=== PATIENT | female | born 1995 | race Caucasian/White ===

== ENCOUNTER 2023-04-15 09:29 | Outpatient (AMB) | payer OTHER, SELFPAY ==
--- NOTE | 2023-04-15 09:31 | HO.NEPHOV_ITS ---
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 She has hereditary GN. She had a renal biopsy done in [facility] [place]. She has one child. Her in the last year was terminated but again 7 weeks now. She had been on diuretics and losartan which had been discontinued. She is currently on Labetalol now. She has been having about 3 grams of protein in urine in last few years( Has very strong family H/O renal disease (cousin)( Had been having confusion whether she has genetic FSGS or likely C3 GN). She has no SOB, PND, orthopnea hematuria or any new systemic complaints except morning sickness. Assessment & Plan Assessment & Plan (1) Nephrotic syndrome: Code(s): N04.9 - Nephrotic syndrome with unspecified morphologic changes (2) Hypertension: Code(s): I10 - Essential (primary) hypertension Qualifiers: Hypertension type: secondary to other renal disorders Qualified Code(s): I15.1 - Hypertension secondary to other renal disorders Plan Known to have hereditary GN Had a renal biopsy done in [facility] in 2016 and 2021 She had been on diuretics and losartan but off now Has been having about 3 grams of protein in urine in last few years (Has very strong family H/O renal disease (cousin) (Had been having confusion 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 Renal function had been stable; Off losartan given Follow up labs ordered; BP needs to be maintained at goal; Low sodium diet Weight loss; Answered all questions Time spent reviewing chart/ data from outside/ encounter/ documentation 48 mts Coding Level of Care Code Est Pt Level 5 (22969) Diagnoses Nephrotic syndrome N04.9 Hypertension secondary to other renal disorders I15.1 Hypertension type: secondary to other renal disorders COUNT INCLUDES [facility] Medical History (Updated 04/15/23 @ 09:40 by Stevenson Brooks MD) Hypertension Nephrotic syndrome Social History (Updated 04/15/23 @ 09:40 by Gretel Montes De Oca MA) Alcohol intake: never Patient Tobacco Use Status: Never used Tobacco Use of substances other than those prescribed or required for medical reasons: No
[2023-04-15 09:36] VITALS: BP 122/90; PULSE 73; BMI 36.9
== END 2023-04-15 09:59 | disposition home or self-care (01) ==
PROVIDERS: Visit Provider Internal Medicine Nephrology
DX: N04.9 Nephrotic syndrome with unspecified morphologic changes (principal); I15.1 Hypertension secondary to other renal disorders
CPT/HCPCS: 99215

== ENCOUNTER → 2023-04-15 09:29 | Outpatient (BNVA) | payer OTHER, SELFPAY | PROVIDERS: Visit Provider Internal Medicine Nephrology | DX: I15.1 Hypertension secondary to other renal disorders (principal); N04.9 Nephrotic syndrome with unspecified morphologic changes | CPT/HCPCS: 99212 ==

== ENCOUNTER 2023-05-16 09:22 | Outpatient (AMB) | payer OTHER, SELFPAY ==
[2023-05-16 09:28] VITALS: BP 120/82; PULSE 74; BMI 35.4
--- NOTE | 2023-05-16 09:28 | HO.NEPHOV_ITS ---
HPI HPI Comments History of Present Illness Details I had the pleasure of seeing Pushpa in follow up for her proteinuria. She has hereditary GN. She had a renal biopsy done [place] [facility] [place]. She has one child. Her in the last year was terminated but again 10 weeks now. She had been on diuretics and losartan which had been discontinued. She is currently on Labetalol now. She checks BP at home and is high. She had a USS which according to her has been OK. She has been having about 3 grams of protein in urine in last few years( Has very strong family H/O renal disease (cousin)( Had been having confusion whether she has genetic FSGS or likely C3 GN). She has no SOB, PND, orthopnea hematuria or any new systemic complaints except morning sickness. [facility] Medical History (Updated 04/15/23 @ 09:40 by Stevenson Brooks MD) Hypertension Nephrotic syndrome Social History Alcohol intake: never Patient Tobacco Use Status: Never used Tobacco Vital Signs 05/16/23 09:28 Height 5 ft 3 in Weight 200 lb 2 oz BMI 35.4 BP 120/82 Blood Pressure Location Lt brachial Position Sitting Pulse 74 Pulse Source Pulse Oximeter Physical Exam Vital Signs: Last Vital Signs Pulse 74 05/16/23 09:28 BP 120/82 05/16/23 09:28 BMI result Body Mass Index 35.4 Const General: comfortable and no acute distress Orientation/consciousness: patient oriented x3 HEENT Head: Yes normocephalic Mouth: Normal oral and palatal mucosa present Eyes EOM: EOMs intact bilaterally Neck Neck: Yes supple Resp Auscultation: clear to auscultation bilaterally Cardio Jugular venous distension: no JVD Rate: regular rate GI Palpation (GI): Soft to palpation Auscultation: normal bowel sounds General: Yes no CVA tenderness Back/Spine/Pelvis Back: no CVA tenderness Skin General skin exam: no rashes or lesions noted Neuro General: patient oriented x3 and moves all extremities Extrem General: Yes no pedal edema Assessment & Plan Assessment & Plan (1) Nephrotic syndrome: Code(s): N04.9 - Nephrotic syndrome with unspecified morphologic changes (2) Hypertension: Code(s): I10 - Essential (primary) hypertension Qualifiers: Hypertension type: secondary to other renal disorders Qualified Code(s): I15.1 - Hypertension secondary to other renal disorders Plan Known to have hereditary GN Had a renal biopsy done in [facility] 2017 and 2021 She had been on diuretics and losartan but off now Has been having about 3 grams of protein in urine in last few years (Has very strong family H/O renal disease (cousin) (Had been having confusion 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 Renal function had been stable; Off losartan/lasix given Follow up labs ordered; BP needs to be maintained at goal; Low sodium diet Answered all questions Orders: Orders Aspartate Amino Transferase Today I10 - Essential (primary) hypertension, N04.9 - Nephrotic syndrome with unspecified morphologic changes Alanine Aminotransferase Today I10 - Essential (primary) hypertension, N04.9 - Nephrotic syndrome with unspecified morphologic changes Blood Urea Nitrogen Today I10 - Essential (primary) hypertension, N04.9 - Nephrotic syndrome with unspecified morphologic changes Electrolytes Today I10 - Essential (primary) hypertension, N04.9 - Nephrotic syndrome with unspecified morphologic changes Creatinine Today I10 - Essential (primary) hypertension, N04.9 - Nephrotic syndrome with unspecified morphologic changes Protein Creatinine Ratio, Ur Today I10 - Essential (primary) hypertension, N04.9 - Nephrotic syndrome with unspecified morphologic changes Bilirubin Total Today I10 - Essential (primary) hypertension, N04.9 - Nephrotic syndrome with unspecified morphologic changes Complete Blood Count Auto Diff Today I10 - Essential (primary) hypertension, N04.9 - Nephrotic syndrome with unspecified morphologic changes Coding Level of Care Code Est Pt Level 3 (63046) Diagnoses Nephrotic syndrome N04.9 Hypertension secondary to other renal disorders I15.1 Hypertension type: secondary to other renal disorders Results Reviewed Nephrology Results: No Data to Display
== END 2023-05-16 09:59 | disposition home or self-care (01) ==
PROVIDERS: Visit Provider Internal Medicine Nephrology
DX: N04.9 Nephrotic syndrome with unspecified morphologic changes (principal); I15.1 Hypertension secondary to other renal disorders
CPT/HCPCS: 99213

== ENCOUNTER → 2023-05-16 09:22 | Outpatient (BNVA) | payer OTHER, SELFPAY | PROVIDERS: Visit Provider Internal Medicine Nephrology | DX: N04.9 Nephrotic syndrome with unspecified morphologic changes (principal); I15.1 Hypertension secondary to other renal disorders | CPT/HCPCS: 99212 ==

== ENCOUNTER 2023-07-02 11:10 | Outpatient (AMB) | payer OTHER, SELFPAY ==
[2023-07-02 11:43] VITALS: BP 122/78; PULSE 71; O2SAT 98; BMI 35.1
--- NOTE | 2023-07-02 11:43 | HO.NEPHOV ---
HPI HPI Comments History of Present Illness Details I had the pleasure of seeing Pushpa in follow up for h er proteinuria. Lorena daly has hereditary G N. She had a renal biopsy done in [facility] in 2016 and 2021 . She has one chil d. Her i n the last year wa s terminated but p regnant again 17 w eeks now. She had been on diuretics and losartan which had been disconti nued after detecti on of . S he is currently on Labetalol now. Lorena daly checks BP at nya e and is at goal. She had a USS whic h according to her has been OK. She has been having ab out 3 grams of pro tein in urine in l ast few years( Has very strong famil y H/O renal diseas e (cousin)( Had be en having confusio n whether she has genetic FSGS or li cheko C3 GN). She h as no SOB, PND, or thopnea hematuria or any new systemi c complaints excep t morning sickness . [facility] Medical History (Updated 04/15/23 @ 09:40 by Stevenson Brooks MD) Hypertension Nephrotic syndrome Social History Alcohol intake: never Patient Tobacco Use Status: Never used Tobacco Vital Signs 07/02/23 11:43 Height 5 ft 3 in Weight 198 lb BMI 35.1 BP 122/78 Blood Pressure Location Lt brachial Position Sitting Pulse 71 Pulse Source Pulse Oximeter Pulse Oximetry (%) 98 Oxygen Delivery Method Room Air Physical Exam Vital Signs: Last Vital Signs Pulse 71 07/02/23 11:43 BP 122/78 07/02/23 11:43 Pulse Ox 98 07/02/23 11:43 Oxygen Delivery Method Room Air 07/02/23 11:43 BMI result Body Mass Index 35.1 Const General: comfortable and no acute distress Orientation/consciousness: patient oriented x3 HEENT Head: Yes normocephalic Mouth: Normal oral and palatal mucosa present Eyes EOM: EOMs intact bilaterally Neck Neck: Yes supple Resp Auscultation: clear to auscultation bilaterally Cardio Jugular venous distension: no JVD Rate: regular rate GI Palpation (GI): Soft to palpation Auscultation: normal bowel sounds General: Yes no CVA tenderness Back/Spine/Pelvis Back: no CVA tenderness Skin General skin exam: no rashes or lesions noted Neuro General: patient oriented x3 and moves all extremities Extrem General: Yes no pedal edema Assessment & Plan Assessment & Plan (1) Hypertension: Code(s): I10 - Essential (primary) hypertension Qualifiers: Hypertension type: secondary to other renal disorders Qualified Code(s): I15.1 - Hypertension secondary to other renal disorders (2) Nephrotic syndrome: Code(s): N04.9 - Nephrotic syndrome with unspecified morphologic changes Plan nown to have hereditary GN Had a renal biopsy done in [facility] in 2016 and 2021 She had been on diuretics and losartan but off since detection of Has been having about 3 grams of protein in urine in last few years (Has very strong family H/O renal disease (cousin) (Had been having confusion 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 Renal function had been stable; Off losartan/lasix given BP needs to be maintained at goal; Low sodium diet No changes made today. Refilled labetalol. Answered all questions Medications: Changed From labetalol 200 mg PO BID To labetalol 200 mg PO BID 90 days 180 tabs 3RF Coding Level of Care Code Est Pt Level 3 (09220) Diagnoses Hypertension secondary to other renal disorders I15.1 Hypertension type: secondary to other renal disorders Nephrotic syndrome N04.9 Results Reviewed Nephrology Results: No Data to Display
== END 2023-07-02 12:05 | disposition home or self-care (01) ==
PROVIDERS: Visit Provider Internal Medicine Nephrology
DX: I15.1 Hypertension secondary to other renal disorders (principal); N04.9 Nephrotic syndrome with unspecified morphologic changes
CPT/HCPCS: 99213

== ENCOUNTER → 2023-07-02 11:10 | Outpatient (BNVA) | payer OTHER, SELFPAY | PROVIDERS: Visit Provider Internal Medicine Nephrology | DX: I15.1 Hypertension secondary to other renal disorders (principal); N04.9 Nephrotic syndrome with unspecified morphologic changes; Z79.899 Other long term (current) drug therapy | CPT/HCPCS: 99212 ==

== ENCOUNTER 2023-08-27 10:46 | Outpatient (AMB) | payer OTHER, SELFPAY ==
--- NOTE | 2023-08-27 10:48 | HO.NEPHOV ---
HPI HPI Comments History of Present Illness Details I had the pleasure of seeing Pushpa in follow up for her proteinuria. She has hereditary GN. She had a [place] [facility]. She has one child. Her in the last year was terminated but again 26 weeks now. She had been on diuretics and losartan which had been discontinued. She is currently on Labetalol now. She had a USS which according to her has been OK. She has been having about 3 grams of protein in urine in last few years( Has very strong family H/O renal disease (cousin)( Had been having confusion whether she has genetic FSGS or likely C3 GN). She has no SOB, PND, orthopnea hematuria or any new systemic complaints . [facility] Medical History (Updated 08/27/23 @ 11:07 by Stevenson Brooks MD) Hypertension Nephrotic syndrome Social History Alcohol intake: never Patient Tobacco Use Status: Never used Tobacco Vital Signs 08/27/23 10:49 Height 5 ft 3 in Weight 206 lb BMI 36.5 BP 112/68 Blood Pressure Location Lt brachial Position Sitting Pulse 84 Pulse Source Pulse Oximeter Pulse Oximetry (%) 93 Oxygen Delivery Method Room Air Physical Exam Vital Signs: Last Vital Signs Pulse 84 08/27/23 10:49 BP 112/68 08/27/23 10:49 Pulse Ox 93 08/27/23 10:49 Oxygen Delivery Method Room Air 08/27/23 10:49 BMI result Body Mass Index 36.5 Const General: comfortable and no acute distress Orientation/consciousness: patient oriented x3 HEENT Head: Yes normocephalic Mouth: Normal oral and palatal mucosa present Eyes EOM: EOMs intact bilaterally Neck Neck: Yes supple Resp Auscultation: clear to auscultation bilaterally Cardio Jugular venous distension: no JVD Rate: regular rate GI Auscultation: normal bowel sounds General: Yes no CVA tenderness Back/Spine/Pelvis Back: no CVA tenderness Skin General skin exam: no rashes or lesions noted Neuro General: patient oriented x3 and moves all extremities Extrem General: Yes no pedal edema Assessment & Plan Assessment & Plan (1) Hypertension: Code(s): I10 - Essential (primary) hypertension Qualifiers: Hypertension type: secondary to other renal disorders Qualified Code(s): I15.1 - Hypertension secondary to other renal disorders (2) Proteinuria: Code(s): R80.9 - Proteinuria, unspecified Qualifiers: Proteinuria type: other Qualified Code(s): R80.8 - Other proteinuria Plan Known to have hereditary GN Had a renal [place] [facility] [place] 2021 She had been on diuretics and losartan pre but off now Has been having about 3 grams of protein in urine in last few years (Has very strong family H/O renal disease (cousin) (Had been having confusion 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 Renal function had been stable; Off losartan/lasix given Follow up labs ordered; BP needs to be maintained at goal; Low sodium diet Orders: Orders Blood Urea Nitrogen Today I10 - Essential (primary) hypertension, R80.9 - Proteinuria, unspecified Creatinine Today I10 - Essential (primary) hypertension, R80.9 - Proteinuria, unspecified Electrolytes Today I10 - Essential (primary) hypertension, R80.9 - Proteinuria, unspecified Protein Creatinine Ratio, Ur Today I10 - Essential (primary) hypertension, R80.9 - Proteinuria, unspecified Coding Level of Care Code Est Pt Level 3 (86203) Diagnoses Hypertension secondary to other renal disorders I15.1 Hypertension type: secondary to other renal disorders Other proteinuria R80.8 Proteinuria type: other Results Reviewed Nephrology Results: No Data to Display
[2023-08-27 10:49] VITALS: BP 112/68; PULSE 84; O2SAT 93; BMI 36.5
== END 2023-08-27 11:12 | disposition home or self-care (01) ==
PROVIDERS: Visit Provider Internal Medicine Nephrology
DX: I15.1 Hypertension secondary to other renal disorders (principal); R80.8 Other proteinuria
CPT/HCPCS: 99213

== ENCOUNTER → 2023-08-27 10:46 | Outpatient (BNVA) | payer OTHER, SELFPAY | PROVIDERS: Visit Provider Internal Medicine Nephrology | DX: I15.1 Hypertension secondary to other renal disorders (principal); R80.8 Other proteinuria | CPT/HCPCS: 99212 ==

== ENCOUNTER 2023-09-26 09:55 | Outpatient (AMB) | payer OTHER, SELFPAY ==
[2023-09-26 10:02] VITALS: BP 110/70; PULSE 74; O2SAT 99; BMI 37.4
--- NOTE | 2023-09-26 10:02 | HO.NEPHOV_ITS ---
HPI HPI Comments History of Present Illness Details I had the pleasure of seeing Pushpa in follow up for her proteinuria. She has hereditary GN. She had a renal biopsy done in [facility] [place] in 2017 and 2021. She has one child. Her in the last year was terminated but again 30 weeks now. She had been on diuretics and losartan which had been discontinued. She is currently on Labetalol now, dose of which has been increased to 400 mg bid. She had a USS which according to her has been OK, repeat one coming up on .. She has been having about 3 grams of protein in urine in last few years( Has very strong family H/O renal disease (cousin)( Had been having confusion whether she has genetic FSGS or likely C3 GN). She has no SOB, PND, orthopnea hematuria but has been having some edema. She is trying to be on low sodium diet. She has been started on PO iron tid . [facility] Medical History (Updated 08/27/23 @ 11:07 by Stevenson Brooks MD) Hypertension Nephrotic syndrome Social History Alcohol intake: never Patient Tobacco Use Status: Never used Tobacco Vital Signs 09/26/23 10:02 Height 5 ft 3 in Weight 211 lb 2 oz BMI 37.4 BP 110/70 Blood Pressure Location Lt brachial Position Sitting Pulse 74 Pulse Source Pulse Oximeter Pulse Oximetry (%) 99 Oxygen Delivery Method Room Air Physical Exam Vital Signs: Last Vital Signs Pulse 74 09/26/23 10:02 BP 110/70 09/26/23 10:02 Pulse Ox 99 09/26/23 10:02 Oxygen Delivery Method Room Air 09/26/23 10:02 BMI result Body Mass Index 37.4 Const General: comfortable and no acute distress Orientation/consciousness: patient oriented x3 HEENT Head: Yes normocephalic Mouth: Normal oral and palatal mucosa present Eyes EOM: EOMs intact bilaterally Neck Neck: Yes supple Resp Auscultation: clear to auscultation bilaterally Cardio Jugular venous distension: no JVD Rate: regular rate GI Auscultation: normal bowel sounds General: Yes no CVA tenderness Back/Spine/Pelvis Back: no CVA tenderness Skin General skin exam: no rashes or lesions noted Neuro General: patient oriented x3 and moves all extremities Assessment & Plan Assessment & Plan (1) Proteinuria: Code(s): R80.9 - Proteinuria, unspecified Qualifiers: Proteinuria type: other Qualified Code(s): R80.8 - Other proteinuria (2) Nephrotic syndrome: Code(s): N04.9 - Nephrotic syndrome with unspecified morphologic changes (3) Hypertension: Code(s): I10 - Essential (primary) hypertension Qualifiers: Hypertension type: secondary to other renal disorders Qualified Code(s): I15.1 - Hypertension secondary to other renal disorders Plan Known to have hereditary GN Had a renal biopsy done in [facility] [place] in 2016 and 2021 She had been on diuretics and losartan pre but off now Has been having about 3 grams of protein in urine in last few years (Has very strong family H/O renal disease (cousin) (Had been having confusion 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 Renal function had been stable; Off losartan/lasix given BP needs to be maintained at goal; Low sodium diet Coding Level of Care Code Est Pt Level 4 (92071) Diagnoses Other proteinuria R80.8 Proteinuria type: other Nephrotic syndrome N04.9 Hypertension secondary to other renal disorders I15.1 Hypertension type: secondary to other renal disorders Results Reviewed Nephrology Results: No Data to Display
== END 2023-09-26 10:29 | disposition home or self-care (01) ==
PROVIDERS: Visit Provider Internal Medicine Nephrology
DX: R80.8 Other proteinuria (principal); N04.9 Nephrotic syndrome with unspecified morphologic changes; I15.1 Hypertension secondary to other renal disorders
CPT/HCPCS: 99214

== ENCOUNTER → 2023-09-26 09:55 | Outpatient (BNVA) | payer OTHER, SELFPAY | PROVIDERS: Visit Provider Internal Medicine Nephrology | DX: I15.1 Hypertension secondary to other renal disorders (principal); R80.8 Other proteinuria; N04.9 Nephrotic syndrome with unspecified morphologic changes | CPT/HCPCS: 99212 ==

== ENCOUNTER 2023-10-10 09:58 | Outpatient (AMB) | payer OTHER, SELFPAY ==
--- NOTE | 2023-10-10 10:14 | HO.NEPHOV_ITS ---
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 She has hereditary GN. She had a renal biopsy done in [facility] in 2017 and 2021. She has one child. Her in the last year was terminated but again 32 weeks now. She had been on diuretics and losartan which had been discontinued. She is currently on Labetalol now, dose of which has been increased to 400 mg bid. She has been having about 3 grams of protein in urine in last few years( Has very strong family H/O renal disease (cousin)( Had been having confusion whether she has genetic FSGS or likely C3 GN). She has no SOB, PND, orthopnea hematuria but has been having some edema. She is trying to be on low sodium diet. She has been on PO iron tid and B12 once a month. [facility] Medical History (Updated 08/27/23 @ 11:07 by Stevenson Brooks MD) Hypertension Nephrotic syndrome Social History Alcohol intake: never Patient Tobacco Use Status: Never used Tobacco Physical Exam Vital Signs: Last Vital Signs Pulse 83 10/10/23 10:15 BP 118/74 10/10/23 10:15 Pulse Ox 99 10/10/23 10:15 Oxygen Delivery Method Room Air 10/10/23 10:15 BMI result Body Mass Index 36.9 Const General: comfortable and no acute distress Orientation/consciousness: patient oriented x3 HEENT Head: Yes normocephalic Mouth: Normal oral and palatal mucosa present Eyes EOM: EOMs intact bilaterally Neck Neck: Yes supple Resp Auscultation: clear to auscultation bilaterally Cardio Jugular venous distension: no JVD Rate: regular rate GI Auscultation: normal bowel sounds General: Yes no CVA tenderness Back/Spine/Pelvis Back: no CVA tenderness Skin General skin exam: no rashes or lesions noted Neuro General: patient oriented x3 and moves all extremities Extrem General: Yes no pedal edema Results Reviewed Nephrology Results: No Data to Display Assessment & Plan Assessment & Plan (1) Nephrotic syndrome: Code(s): N04.9 - Nephrotic syndrome with unspecified morphologic changes Category: Medical (2) Hypertension: Code(s): I10 - Essential (primary) hypertension Category: Medical Qualifiers: Hypertension type: secondary to other renal disorders Qualified Code(s): I15.1 - Hypertension secondary to other renal disorders Plan Known to have hereditary GN Had a renal biopsy done in [facility] in 2017 and 2021 She had been on diuretics and losartan pre but off now Has been having about 3 grams of protein in urine in last few years (Has very strong family H/O renal disease (cousin) (Had been having confusion 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 Renal function had been stable; Off losartan/lasix given BP needs to be maintained at goal; Low sodium diet; F/U 2 weeks Coding Level of Care Code Est Pt Level 4 (44250) Diagnoses Nephrotic syndrome N04.9 Hypertension secondary to other renal disorders I15.1 Hypertension type: secondary to other renal disorders
[2023-10-10 10:15] VITALS: BP 118/74; PULSE 83; O2SAT 99; BMI 36.9
== END 2023-10-10 10:40 | disposition home or self-care (01) ==
PROVIDERS: Visit Provider Internal Medicine Nephrology
DX: N04.9 Nephrotic syndrome with unspecified morphologic changes (principal); I15.1 Hypertension secondary to other renal disorders
CPT/HCPCS: 99214

== ENCOUNTER → 2023-10-10 09:58 | Outpatient (BNVA) | payer OTHER, SELFPAY | PROVIDERS: Visit Provider Internal Medicine Nephrology | DX: N04.9 Nephrotic syndrome with unspecified morphologic changes (principal); I15.1 Hypertension secondary to other renal disorders | CPT/HCPCS: 99212 ==

== ENCOUNTER 2023-12-31 13:36 | Outpatient (AMB) | payer SELFPAY ==
--- NOTE | 2023-12-31 13:41 | HO.NEPHOV ---
Vital Signs 12/31/23 13:49 Height 5 ft 3 in Weight 182 lb 6 oz BMI 32.3 BP 120/80 Blood Pressure Location Lt brachial Position Sitting Intake Visit Reasons: R/S 10/24/2023/ Conf Insurance Follow Up Specialist Required: No Accompanied by: Child Allergies ferumoxytol Allergy (Verified 12/31/23 13:51) Anaphylaxis iron Allergy (Verified 12/31/23 13:51) Unknown HPI Comments Details: I had the pleasure of seeing Pushpa in follow up for her proteinuria. She has hereditary GN. She [place] renal [place] [facility] She has two children. She had been on diuretics and losartan which had been discontinued during recent but was restarted on enalapril 5 mg after child . She is post 2 months and is breast feeding. She has been having about 3 grams of protein in urine in last few years( Has very strong family H/O renal disease (cousin)( Had been having confusion whether she has genetic FSGS or likely C3 GN). She has no SOB, PND, orthopnea hematuria or edema. She is trying to be on low sodium diet. [facility] Medical History (Updated 08/27/23 @ 11:07 by Stevenson Brooks MD) Hypertension Nephrotic syndrome Social History Alcohol intake: never Patient Tobacco Use Status: Never used Tobacco Physical Exam Vital Signs: Last Vital Signs BP 130/96 H 12/31/23 13:49 BMI result Body Mass Index 32.3 Const General: comfortable and no acute distress Orientation/consciousness: patient oriented x3 HEENT Head: Yes normocephalic Mouth: Normal oral and palatal mucosa present Eyes EOM: EOMs intact bilaterally Neck Neck: Yes supple Resp Auscultation: clear to auscultation bilaterally Cardio Jugular venous distension: no JVD Rate: regular rate GI Palpation (GI): Soft to palpation Auscultation: normal bowel sounds General: Yes no CVA tenderness Back/Spine/Pelvis Back: no CVA tenderness Skin General skin exam: no rashes or lesions noted Neuro General: patient oriented x3 and moves all extremities Results Reviewed Nephrology Results: No Data to Display Assessment & Plan Assessment & Plan (1) Proteinuria: Code(s): R80.9 - Proteinuria, unspecified Category: Medical Qualifiers: Proteinuria type: other Qualified Code(s): R80.8 - Other proteinuria (2) Nephrotic syndrome: Code(s): N04.9 - Nephrotic syndrome with unspecified morphologic changes Category: Medical (3) Hypertension: Code(s): I10 - Essential (primary) hypertension Category: Medical Qualifiers: Hypertension type: secondary to other renal disorders Qualified Code(s): I15.1 - Hypertension secondary to other renal disorders Plan Known to have hereditary GN Had a renal [place] done [place] [facility] [place] 2021 She had been on diuretics and losartan pre but off during Has been having about 3 grams of protein in urine in last few years (Has very strong family H/O renal disease (cousin) (Had been having confusion 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 Currently on enalapril 5 mg; Labs ordered for today BP needs to be maintained at goal; Low sodium diet; F/U in 3 M Orders: Orders Protein Creatinine Ratio, Ur Today I15.1 - Hypertension secondary to other renal disorders, N04.9 - Nephrotic syndrome with unspecified morphologic changes, R80.8 - Other proteinuria Creatinine 3 Months I15.1 - Hypertension secondary to other renal disorders, N04.9 - Nephrotic syndrome with unspecified morphologic changes, R80.8 - Other proteinuria Electrolytes 3 Months I15.1 - Hypertension secondary to other renal disorders, N04.9 - Nephrotic syndrome with unspecified morphologic changes, R80.8 - Other proteinuria Protein Creatinine Ratio, Ur 3 Months I15.1 - Hypertension secondary to other renal disorders, N04.9 - Nephrotic syndrome with unspecified morphologic changes, R80.8 - Other proteinuria Creatinine Today I15.1 - Hypertension secondary to other renal disorders, N04.9 - Nephrotic syndrome with unspecified morphologic changes, R80.8 - Other proteinuria Blood Urea Nitrogen Today I15.1 - Hypertension secondary to other renal disorders, N04.9 - Nephrotic syndrome with unspecified morphologic changes, R80.8 - Other proteinuria Electrolytes Today I15.1 - Hypertension secondary to other renal disorders, N04.9 - Nephrotic syndrome with unspecified morphologic changes, R80.8 - Other proteinuria Blood Urea Nitrogen 3 Months I15.1 - Hypertension secondary to other renal disorders, N04.9 - Nephrotic syndrome with unspecified morphologic changes, R80.8 - Other proteinuria Coding Level of Care Code Est Pt Level 4 (94391) Diagnoses Other proteinuria R80.8 Proteinuria type: other Nephrotic syndrome N04.9 Hypertension secondary to other renal disorders I15.1 Hypertension type: secondary to other renal disorders
[2023-12-31 13:49] VITALS: BP 120/80; BMI 32.3
== END 2023-12-31 16:14 | disposition home or self-care (01) ==
PROVIDERS: Visit Provider Internal Medicine Nephrology
DX: R80.8 Other proteinuria (principal); N04.9 Nephrotic syndrome with unspecified morphologic changes; I15.1 Hypertension secondary to other renal disorders
CPT/HCPCS: 99214

== ENCOUNTER → 2023-12-31 13:36 | Outpatient (BNVA) | payer OTHER, SELFPAY | PROVIDERS: Visit Provider Internal Medicine Nephrology ==

== ENCOUNTER 2023-12-31 14:14 | Outpatient (REF) | payer OTHER, SELFPAY ==
[2023-12-31 17:47] LABS: Anion Gap 18 (12-20); Blood Urea Nitrogen 13 mg/dL (9-16); Carbon Dioxide 17 mmol/L (22-29); Chloride 110 mmol/L (96-108); Estimated Glomerular Filt Rate > 60; Potassium 3.7 mmol/L (3.3-5.1); Sodium 141 mmol/L (135-145)
[2023-12-31 18:32] LABS: Creatinine Urine 205.16 mg/dL
[2023-12-31 19:20] LABS: Protein/Creatinine Ratio, Ur 2.31 (<0.2); Total Protein Urine Random 474 mg/dL (<12)
== END 2023-12-31 14:15 | disposition home or self-care (01) ==
LOC: HO.HKASLDS 14:14
PROVIDERS: Visit Provider Internal Medicine Nephrology
DX: R80.8 Other proteinuria (principal); N04.9 Nephrotic syndrome with unspecified morphologic changes; I15.1 Hypertension secondary to other renal disorders; Z79.899 Other long term (current) drug therapy
CPT/HCPCS: 36415; 80051; 82565; 82570; 84156; 84520; 99212

== ENCOUNTER 2024-03-24 11:25 | Outpatient (AMB) | payer OTHER, SELFPAY ==
--- NOTE | 2024-03-24 11:34 | MHC.OFFVIS ---
Vital Signs 03/24/24 11:36 Height 5 ft 3 in Weight 188 lb 2 oz BMI 33.3 BP 124/90 H Blood Pressure Location Lt brachial Position Sitting Pulse 80 Pulse Source Pulse Oximeter Pulse Oximetry (%) 99 Oxygen Delivery Method Room Air Intake Visit Reasons: Hypertension Special Education Administrator Required: No Accompanied by: Mother Allergies ferumoxytol Allergy (Verified 03/24/24 11:39) Anaphylaxis iron Allergy (Verified 03/24/24 11:39) Unknown HPI Comments Details: I had the pleasure of seeing Pushpa in follow up for her proteinuria. She has hereditary GN. She [place] [facility]. She has two children. She had been on diuretics and losartan which had been discontinued during recent but was restarted on enalapril 5 mg after child . She is post 5 months and is breast feeding. She has been having about 3 grams of protein in urine in last few years( Has very strong family H/O renal disease (cousin)( Had been having confusion whether she has genetic FSGS or likely C3 GN). She has no SOB, PND, orthopnea hematuria or edema. She is trying to be on low sodium diet. [facility] Medical History (Updated 08/27/23 @ 11:07 by Stevenson Brooks MD) Hypertension Nephrotic syndrome Social History Alcohol intake: never Patient Tobacco Use Status: Never used Tobacco Review of Systems Const All systems reviewed & are unremarkable except as noted in HPI and below Physical Exam Vital Signs: Last Vital Signs Pulse 80 03/24/24 11:36 BP 124/90 H 03/24/24 11:36 Pulse Ox 99 03/24/24 11:36 Oxygen Delivery Method Room Air 03/24/24 11:36 BMI result Body Mass Index 33.3 Const General: comfortable and no acute distress Orientation/consciousness: patient oriented x3 HEENT Head: Yes normocephalic Mouth: Normal oral and palatal mucosa present Eyes EOM: EOMs intact bilaterally Neck Neck: Yes supple Resp Auscultation: clear to auscultation bilaterally Cardio Jugular venous distension: no JVD Rate: regular rate GI Palpation (GI): Soft to palpation Auscultation: normal bowel sounds General: Yes no CVA tenderness Back/Spine/Pelvis Back: no CVA tenderness Skin General skin exam: no rashes or lesions noted Neuro General: patient oriented x3 and moves all extremities Extrem General: Yes no pedal edema Assessment & Plan Assessment & Plan (1) Hypertension: Code(s): I10 - Essential (primary) hypertension Category: Medical Qualifiers: Hypertension type: secondary to other renal disorders Qualified Code(s): I15.1 - Hypertension secondary to other renal disorders (2) Proteinuria: Code(s): R80.9 - Proteinuria, unspecified Category: Medical Qualifiers: Proteinuria type: other Qualified Code(s): R80.8 - Other proteinuria Plan Known to have hereditary GN Had a renal [place] [facility] She had been on diuretics and losartan pre but off during Has been having about 3 grams of protein in urine in last few years (Has very strong family H/O renal disease (cousin) (Had been having confusion 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 Currently on enalapril 5 mg; Increased enalapril to 7.5 mg daily BP needs to be maintained at goal; Low sodium diet; Labs & F/U in 3 M Orders: Orders Creatinine 3 Months I15.1 - Hypertension secondary to other renal disorders, R80.8 - Other proteinuria Protein Creatinine Ratio, Ur 3 Months I15.1 - Hypertension secondary to other renal disorders, R80.8 - Other proteinuria Blood Urea Nitrogen 3 Months I15.1 - Hypertension secondary to other renal disorders, R80.8 - Other proteinuria Electrolytes 3 Months I15.1 - Hypertension secondary to other renal disorders, R80.8 - Other proteinuria Medications: Changed From enalapril maleate 7.5 mg PO DAILY To enalapril maleate 7.5 mg (1.5 x 5 mg) PO DAILY 90 days 135 tabs 1RF Coding Level of Care Code Est Pt Level 4 (19201) Diagnoses Hypertension secondary to other renal disorders I15.1 Hypertension type: secondary to other renal disorders Other proteinuria R80.8 Proteinuria type: other
[2024-03-24 11:36] VITALS: BP 124/90; PULSE 80; O2SAT 99; BMI 33.3
== END 2024-03-24 12:21 | disposition home or self-care (01) ==
PROVIDERS: Visit Provider Internal Medicine Nephrology
DX: I15.1 Hypertension secondary to other renal disorders (principal); R80.8 Other proteinuria
CPT/HCPCS: 99214

== ENCOUNTER → 2024-03-24 11:25 | Outpatient (BNVA) | payer OTHER, SELFPAY | PROVIDERS: Visit Provider Internal Medicine Nephrology | DX: I15.1 Hypertension secondary to other renal disorders (principal); N04.9 Nephrotic syndrome with unspecified morphologic changes; R80.8 Other proteinuria | CPT/HCPCS: 99212 ==

== ENCOUNTER 2024-06-17 10:03 | Outpatient (REF) | payer OTHER, SELFPAY ==
--- OUTSIDE RECORDS SUMMARY | 2024-06-17 10:19 | XMS_ITS ---
Author Organization [facility] [place], Address [address] [place] [address] Care Team Providers [facility] Pricing Consultant Name Role Phone Jacinda Flores [phone] ALLERGIES, ADVERSE REACTIONS, ALERTS Substance Code Code System Type Reaction Severity Status Start Date End Date iron 55063 RxNorm Drug allergy () 0 iron 16679 RxNorm Drug allergy () 1 MEDICATIONS Medication Code Code System Start Date Stop Date Route Dosage Directions Fill Instructions furosemide RxNorm 08/11/2022 losartan RxNorm 08/11/2022 cyclobenzaprine 664575 RxNorm 08/11/2022 3 oral 1 PROBLEMS Problem Name Code Code System Start Date End Date Stat us Hypertension 53036484 [facility] 08/11/2022 Active Disorder of kidney and urete r, unspecified 02512163 [facility] 08/11/2022 Active Torticollis 13769239 [facility] 08/11/2022 Inactive Acute tonsillitis, unspecified 54524912 [facility] 01/16/2023 Active ENCOUNTERS Encounter Diagnosis Code Code System Date Stat Acute tonsillitis, unspecified 59847412 [facility] 023 Active IMMUNIZATIONS * None VITAL SIGNS Code Code System Vitals Name Date Value and Un its 8462-4 [facility] Blood Pressure-Diastolic 01/16/2023 90 mmHg 8480-6 [facility] Blood Pressure-Systolic 01/16/2023 1 31 mmHg 8867-4 [facility] Heart Rate 01/16/2023 80 /min 9279-1 [facility] Respiratory Rate 01/16/2023 16 /min 8310-5 [facility] Body Temperature 01/16/2023 99.2 F 03259-7 [facility] Oxygen Saturation 01/16/2023 97 % SOCIAL HISTORY * None PROCEDURES * None RESULTS Test Code Code System Description Result Value Date Ref erence Range Loinc Strep A Not Detected 01/16/2023 Not Det ected 80079-1 [facility] MonoSpot heterop hile antibodies Negative 01/16/2023 MEDICAL EQUIPMENT * Patient has no history of implantable devices ASSESSMENT Assessment You likely have viral infect ion causing the tonsillitis.Your rapid strep was negative.Your mono test is negative.You may take Tylenol and/or Motrin as needed.Salt water gargles may help reduce pain and draw out the infection.Over the counter lozenges can also be helpful.Warm tea with honey can be helpfulYou may use an over the counter chloraseptic spray to help with the sore throat. DO NOT consume any sharp food or food at the extremes of temperature after using this spray as it will numb your throat.Drink plenty of fluids.If you develop any worsening symptoms, trouble swallowing, fever, pain opening the jaw, neck stiffness, or any other new, concerning symptoms please return. TREATMENT PLAN Type Description Date APPOINTMENT If not feeling ambrose r in 3 day(s), please see your primary care physician. If you do not have a primary care physician, please return to this clinic. 01/16/2023 Labs Tests Test Name Code Code System Date Strep A, DNA, Amplified Probe PCR 62913 CPT 01/16/2023 Strep A, DNA, Amplified Probe PCR 95852 CPT 01/16/2023 [place] [address] [facility] 2022 GOALS * None HEALTH CONCERNS * No Health Concerns FUNCTIONAL AND COGNITIVE STATUS * None CONSULTATION NOTES * None DISCHARGE SUMMARY NOTES * None HISTORY AND PHYSICAL NOTES * Reason for visit - Illness IMAGING NOTES * None LABORATORY REPORT NARRATIVE NOTES * None PATHOLOGY REPORT NARRATIVE NOTES * None PROGRESS NOTES * None
[2024-06-17 18:04] LABS: Anion Gap 10 (12-20); Blood Urea Nitrogen 14 mg/dL (9-16); Carbon Dioxide 22 mmol/L (22-29); Chloride 111 mmol/L (96-108); Estimated Glomerular Filt Rate > 60; Potassium 4.3 mmol/L (3.3-5.1); Sodium 139 mmol/L (135-145)
[2024-06-17 19:33] LABS: Protein/Creatinine Ratio, Ur 1.57 (<0.2); Total Protein Urine Random 433 mg/dL (<12)
== END 2024-06-17 10:04 | disposition home or self-care (01) ==
LOC: HO.HKASLDS 10:03
PROVIDERS: Visit Provider Internal Medicine Nephrology
DX: I15.1 Hypertension secondary to other renal disorders (principal); R80.8 Other proteinuria
CPT/HCPCS: 36415; 80051; 82565; 82570; 84156; 84520

== ENCOUNTER 2024-06-18 10:41 | Outpatient (AMB) | payer OTHER, SELFPAY ==
--- OUTSIDE RECORDS SUMMARY | 2024-06-18 11:21 | XMS_ITS ---
Author Organization [facility], Address [address] [place] [address] Care Team Providers Care Radio Announcer Name Role Phone Jacinda Flores [phone] ALLERGIES, ADVERSE REACTIONS, ALERTS Substance Code Code System Type Reaction Severity Status Start Date End Date iron 41218 RxNorm Drug allergy () 0 iron 88728 RxNorm Drug allergy () 1 MEDICATIONS Medication Code Code System Start Date Stop Date Route Dosage Directions Fill Instructions furosemide RxNorm 08/11/2022 losartan RxNorm 08/11/2022 cyclobenzaprine 196579 RxNorm 08/11/2022 3 oral 1 PROBLEMS Problem Name Code Code System Start Date End Date Stat us Hypertension 60973600 [facility] 08/11/2022 Active Disorder of kidney and urete r, unspecified 78121440 [facility] 08/11/2022 Active Torticollis 63520249 [facility] 08/11/2022 Inactive Acute tonsillitis, unspecified 28103853 [facility] 01/16/2023 Active ENCOUNTERS Encounter Diagnosis Code Code System Date Stat Acute tonsillitis, unspecified 37647801 [facility] 023 Active IMMUNIZATIONS * None VITAL SIGNS Code Code System Vitals Name Date Value and Un its 8462-4 [facility] Blood Pressure-Diastolic 01/16/2023 90 mmHg 8480-6 [facility] Blood Pressure-Systolic 01/16/2023 1 31 mmHg 8867-4 [facility] Heart Rate 01/16/2023 80 /min 9279-1 Loinc Respiratory Rate 01/16/2023 16 /min 8310-5 Loinc Body Temperature 01/16/2023 99.2 F 28600-9 Loinc Oxygen Saturation 01/16/2023 97 % SOCIAL HISTORY * None PROCEDURES * None RESULTS Test Code Code System Description Result Value Date Ref erence Range Loinc Strep A Not Detected 01/16/2023 Not Det ected 80028-9 Loinc MonoSpot heterop hile antibodies Negative 01/16/2023 [...] Date Strep A, DNA, Amplified Probe PCR 16272 CPT 01/16/2023 Strep A, DNA, Amplified Probe PCR 25288 CPT 01/16/2023 [place] [address] [facility] 2022 GOALS * None HEALTH CONCERNS * No Health Concerns FUNCTIONAL AND COGNITIVE STATUS * None CONSULTATION NOTES * None DISCHARGE SUMMARY NOTES * None HISTORY AND PHYSICAL NOTES * Reason for visit - Illness IMAGING NOTES * None LABORATORY REPORT NARRATIVE NOTES * None PATHOLOGY REPORT NARRATIVE NOTES * None PROGRESS NOTES * None
--- OUTSIDE RECORDS SUMMARY | 2024-06-18 11:21 | XMS_ITS ---
Author Organization [facility], Address [address] [place] [address] Care Team Providers Care Alley Tender Name Role Phone Jacinda Flores [phone] ALLERGIES, ADVERSE REACTIONS, ALERTS Substance Code Code System Type Reaction Severity Status Start Date End Date iron 63899 RxNorm Drug allergy () 0 iron 92678 RxNorm Drug allergy () 1 MEDICATIONS Medication Code Code System Start Date Stop Date Route Dosage Directions Fill Instructions furosemide RxNorm 08/11/2022 losartan RxNorm 08/11/2022 cyclobenzaprine 721301 RxNorm 08/11/2022 3 oral 1 PROBLEMS Problem Name Code Code System Start Date End Date Stat us Hypertension 75545657 [facility] 08/11/2022 Active Disorder of kidney and urete r, unspecified 78034225 [facility] 08/11/2022 Active Torticollis 01001197 [facility] 08/11/2022 Inactive Acute tonsillitis, unspecified 58964978 [facility] 01/16/2023 Active ENCOUNTERS Encounter Diagnosis Code Code System Date Stat Acute tonsillitis, unspecified 40266296 [facility] 023 Active IMMUNIZATIONS * None VITAL SIGNS Code Code System Vitals Name Date Value and Un its 8462-4 [facility] Blood Pressure-Diastolic 01/16/2023 90 mmHg 8480-6 Loinc Blood Pressure-Systolic 01/16/2023 1 31 mmHg 8867-4 [facility] Heart Rate 01/16/2023 80 /min 9279-1 Loinc Respiratory Rate 01/16/2023 16 /min 8310-5 Loinc Body Temperature 01/16/2023 99.2 F 53924-3 Loinc Oxygen Saturation 01/16/2023 97 % SOCIAL HISTORY * None PROCEDURES * None RESULTS Test Code Code System Description Result Value Date Ref erence Range Loinc Strep A Not Detected 01/16/2023 Not Det ected 45592-6 [facility] MonoSpot heterop hile antibodies Negative 01/16/2023 [...] Date Strep A, DNA, Amplified Probe PCR 54765 CPT 01/16/2023 Strep A, DNA, Amplified Probe PCR 38975 CPT 01/16/2023 [place] [address] [facility] 2022 GOALS * None HEALTH CONCERNS * No Health Concerns FUNCTIONAL AND COGNITIVE STATUS * None CONSULTATION NOTES * None DISCHARGE SUMMARY NOTES * None HISTORY AND PHYSICAL NOTES * Reason for visit - Illness IMAGING NOTES * None LABORATORY REPORT NARRATIVE NOTES * None PATHOLOGY REPORT NARRATIVE NOTES * None PROGRESS NOTES * None
--- NOTE | 2024-06-18 11:22 | HO.NEPHOV_ITS ---
Vital Signs 06/18/24 11:23 Height 5 ft 3 in Weight 185 lb 6 oz BMI 32.8 BP 134/90 H Blood Pressure Location Lt brachial Position Sitting Pulse 78 Pulse Source Pulse Oximeter Pulse Oximetry (%) 98 Oxygen Delivery Method Room Air Intake Visit Reasons: 3mon follow up Cellular Equipment Installer Required: No Accompanied by: Mother Allergies ferumoxytol Allergy (Verified 06/18/24 11:23) Anaphylaxis iron Allergy (Verified 06/18/24 11:23) Unknown HPI Comments Details: I had the pleasure of seeing Pushpa in follow up for her proteinuria. She has hereditary GN. She had a renal biopsy done in [facility] in 2016 and 2021. She has two children. She had been on diuretics and losartan which had been discontinued during recent but was restarted on enalapril 7.5 mg after child . She is post 8 months and is breast feeding. 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 She has no SOB, PND, orthopnea hematuria or edema. She is trying to be on low sodium diet. [facility] Medical History (Updated 08/27/23 @ 11:07 by Stevenson Brooks MD) Hypertension Nephrotic syndrome Social History Alcohol intake: never Patient Tobacco Use Status: Never used Tobacco Review of Systems Const All systems reviewed & are unremarkable except as noted in HPI and below Physical Exam Vital Signs: Last Vital Signs Pulse 78 06/18/24 11:23 BP 134/90 H 06/18/24 11:23 Pulse Ox 98 06/18/24 11:23 Oxygen Delivery Method Room Air 06/18/24 11:23 BMI result Body Mass Index 32.8 Const General: comfortable and no acute distress Orientation/consciousness: patient oriented x3 HEENT Head: Yes normocephalic Mouth: Normal oral and palatal mucosa present Eyes EOM: EOMs intact bilaterally Neck Neck: Yes supple Resp Auscultation: clear to auscultation bilaterally Cardio Jugular venous distension: no JVD Rate: regular rate GI Palpation (GI): Soft to palpation Auscultation: normal bowel sounds General: Yes no CVA tenderness Back/Spine/Pelvis Back: no CVA tenderness Skin General skin exam: no rashes or lesions noted Neuro General: patient oriented x3 and moves all extremities Extrem General: Yes no pedal edema Results Reviewed Nephrology Results: Sodium 139 mmol/L (135-145) 06/17/24 Potassium 4.3 mmol/L (3.3-5.1) 06/17/24 Chloride 111 mmol/L (96-108) H 06/17/24 Carbon Dioxide 22 mmol/L (22-29) 06/17/24 BUN 14 mg/dL (9-16) 06/17/24 Creatinine 0.83 mg/dL (0.5-1.4) 06/17/24 Urine Creatinine 276.00 mg/dL 06/17/24 Protein/Creatinin Ratio 1.57 (<0.2) H 06/17/24 Assessment & Plan Assessment & Plan (1) Hypertension: Code(s): I10 - Essential (primary) hypertension Category: Medical Qualifiers: Hypertension type: secondary to other renal disorders Qualified Code(s): I15.1 - Hypertension secondary to other renal disorders (2) Proteinuria: Code(s): R80.9 - Proteinuria, unspecified Category: Medical Qualifiers: Proteinuria type: other Qualified Code(s): R80.8 - Other proteinuria Plan Known to have hereditary GN Had a renal biopsy done in [facility] in 2016 and 2021 She had been on diuretics and losartan pre but off during Has been having about 3 grams of protein in urine in last few years- better now (Has very strong family H/O renal disease (cousin) (Had been having confusion 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 Currently on enalapril 5 mg; Increased enalapril to 10 mg daily BP needs to be maintained at goal; Low sodium diet; Labs & F/U in 3 M Orders: Orders Creatinine 3 Months I15.1 - Hypertension secondary to other renal disorders, R80.8 - Other proteinuria Blood Urea Nitrogen 3 Months I15.1 - Hypertension secondary to other renal disorders, R80.8 - Other proteinuria Electrolytes 3 Months I15.1 - Hypertension secondary to other renal disorders, R80.8 - Other proteinuria Protein Creatinine Ratio, Ur 3 Months R80.8 - Other proteinuria Medications: Changed From enalapril maleate 7.5 mg (1.5 x 5 mg) PO DAILY 90 days 135 tabs 1RF To enalapril maleate 10 mg PO DAILY 90 days 90 tabs 3RF Coding Level of Care Code Est Pt Level 4 (65828) Diagnoses Hypertension secondary to other renal disorders I15.1 Hypertension type: secondary to other renal disorders Other proteinuria R80.8 Proteinuria type: other
[2024-06-18 11:23] VITALS: BP 134/90; PULSE 78; O2SAT 98; BMI 32.8
== END 2024-06-18 13:38 | disposition home or self-care (01) ==
PROVIDERS: Visit Provider Internal Medicine Nephrology
DX: I15.1 Hypertension secondary to other renal disorders (principal); R80.8 Other proteinuria
CPT/HCPCS: 99214

== ENCOUNTER → 2024-06-18 10:41 | Outpatient (BNVA) | payer OTHER, SELFPAY | PROVIDERS: Visit Provider Internal Medicine Nephrology | DX: I15.1 Hypertension secondary to other renal disorders (principal); R80.8 Other proteinuria | CPT/HCPCS: 99212 ==

== ENCOUNTER 2024-09-15 12:55 | Outpatient (REF) | payer OTHER, SELFPAY ==
--- OUTSIDE RECORDS SUMMARY | 2024-09-15 15:36 | XMS_ITS | Clinical Summary ---
Author Organization [facility] Address [address] [facility] [address] [place] [address] Phone Care Team Providers Care Oncology Physician Assistant Name Role Phone Karlie Chapin S Primary Care Provider [phone] Allergies Active Allergy Reactions Criticality Noted Date Comments Ferumoxytol Anaphylaxis High 08/08/2020 Iron 09/17/2022 Other reaction(s): Not Indicated Medications No known medications Active Problems Problem Noted Date Diagnosed Date Cardiac murmur 11/22/2022 Obese class II 11/22/2022 Disorder of kidney 09/17/2022 Proteinuria, not otherwise specified 09/17/2022 Torticollis 08/11/2022 Nephrotic syndrome, focal and segmental glomerul ar lesions 11/09/2021 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 Anemia of chronic disease 2021 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 Acute nontraumatic kidney injury 08/08/2020 Chest pain 08/08/2020 Edema of lower extremity 08/08/2020 Hypertensive disorder 08/08/2020 Nephrotic syndrome 08/08/2020 Resolved Problems Problem Noted Date Diagnosed Date Resolved Date Patient currently 08/08/2020 0 02/15/2022 Immunizations Name Administration Dates Next Due DTaP 04/17/2001, 8,07/08/1997,04/05/1997,12/19 HPV, Quadrivalent 02/21/2010,03/11/2008,12/26/19 08 HPV, Unspecified 02/21/2010 Hep B, Unspecified 09/29/1997,1996, 997 HiB 04/08/1998,07/08/1997,04/05/1997 ,1996 IPV 04/17/2001,07/08/1997,04/05/1997 ,1996 Influenza, Unspecified 08/07/2016,02/21/2010 MMR 01/29/2017,04/17/2001,09/29/1997 Meningococcal, Unspecified 12/26/2007 Tdap 11/27/2016,12/26/2007 Varicella 02/21/2010 Family History Medical History Relation Comments Hypertension Mother maternal aunt an d maternal grandmother Relation Status Comments Father Alive Mother Alive Social History Tobacco Use Types Packs/Day Years Used Date Smoking Tobacco: Never Smokeless Tobacco: Never Tobacco Cessation:Counseling Given: Not Answered Alcohol Use Standard Drinks/Week Comments No 0 (1 standard drink = 0.6 oz pur e alcohol) Comments Unknown Sex and Gender Information Value Date Recorded Sex Assigned at Not on file Legal Sex Female 4:49 PM EST Gender Identity Not on file Sexual Orientation Not on file Last Filed Vital Signs Vital Sign Reading Time Taken Comments Blood Pressure 130/90 01/03/2023 3:22 PM EDT Pulse 78 01/03/2023 3:22 PM EDT Temperature - - Respiratory Rate - - Oxygen Saturation 99% 11/09/2021 8:50 AM EDT Inhaled Oxygen Concentration - - Weight 96.8 kg (213 lb 6.4 oz) 01/03/2023 3:22 P M EDT Height 157.5 cm (5' 2 ) 10/14/2020 9:26 AM EDT Body Mass Index 39.03 10/14/2020 9:26 AM EDT Plan of Treatment Health Maintenance Due Date Last Done Comments Pneumococcal Vaccine: Pediat rics (0 to 5 Years) and At-Risk Patients (6 to 64 Years) (1 of 2 - PCV) 2002 Influenza Vaccine (Season Ended) 2025 08/07/19 17, 02/21/2010 Hepatitis B Vaccine Completed 09/29/1997, 1996, 1996 [id number] [place] [address] [address] MEDICAID Care Teams Oncology Physician Assistant Relationship Specialty Start Date End Date Karlie Chapin [address] [place] [phone] PCP - General 06/20/20
--- OUTSIDE RECORDS SUMMARY | 2024-09-15 15:36 | XMS_ITS | Clinical Summary ---
Author Organization [place] [address] [facility] Address [address] [place], [place] [address] [address] Phone Care Team Providers Care Burglar Alarm Operator Name Role Phone Merary Mcdaniel MD Primary Care Pr ovider Allergies Active Allergy Reactions Criticality Noted Date Comments Ferumoxytol Anaphylaxis High 08/08/2020 Tolerates Venofer Iron Other High 03/05/2022 Other reaction(s): Not Indicated Chest tightness Medications medroxyPROGESTE Tyler 150 mg/mL injection Inject 1 mL into the muscle Every 3 Months. 02/06/2024 Active sertraline (ZOLOFT) 50 mg tablet Take 0.5 tab daily for two weeks then increase to 1 tab daily 30 each 2 07/01/2024 Active enalapril (VASOTEC) 10 mg tablet Take 1.5 tablets (15 mg total) by mouth 1 (one) time each day. Active Hospital, Clinic, or Other Facility Administered Medication Ordered Dose Route Frequency Start Date End Date Status medroxyPROGESTERone (DEPO-PROVERA) injection 150 mgIndications:Encounte r for surveillance of injectable contraceptive 150 mg IM Every 3 months 04/30/2024 04/25/2025 Active Active Problems Problem Noted Date Diagnosed Date FSGS (focal segmental glomerulosclerosis) 2023 Hyperlipidemia 03/19/2024 Obesity (BMI 30.0-34.9) 03/19/2024 Thrombocytosis 03/19/2024 Anemia 05/23/2017 Glomerulonephritis 05/23/2017 Overview (03/19/2024): Focal segmental--Dr Sam Cool Hypertension 05/23/2017 Migraine 05/23/2017 QT prolongation 05/23/2017 Encounters Date Type Department Care Team Description 09/02/2024 1:00 PM EDT Clinical Support Obstetrics and [facility]necology [facility] [address] [facility] [phone] Encounter for surveillance of injectable contraceptive (Primary Dx) 07/01/2024 4:30 PM EST Office Visit Adult Medicine [address] [address] Melinda Solares PA Primary hypertension (Primary Dx); FSGS (focal segmental glomerulosclerosis); anxiety from Last 3 Months Immunizations Name Administration Dates Next Due Influenza Quadravalent, MDCK , 0.5ml, preservative free (Flucelvax) 6mo and older 06/08/2019 [employer] SARS-CoV-2 COVID-19, mRNA, LNP-S, preservative free 10/01/2020,09/12/2020 Surgical History Surgery Date Site/Laterality Comments SECTION PROCEDURE: [place] DELIVERY ONLY; COMMENT: 2023 Medical History Medical History Date Comments QT prolongation DX:QT prolongati on Migraine DX:Migraine Glomerulonephritis DX:Glomerulon ephritis FSGS (focal segmental glomerulosclerosis) DX:FSGS (focal segmental glomerulosclerosis); COMMENT: Shanthi CKD (chronic kidney disease) stage 2, GFR 60-89 ml/min DX:CKD (chronic kidney disea se) stage 2, GFR 60-89 ml/min; COMMENT: Shanthi Thrombocytosis DX:Thrombocytosi s Nephrotic syndrome DX:Nephrotic syndrome; COMMENT: Proteinuria Severe pre-eclampsia DX:Severe p re-eclampsia; COMMENT: 2023 Family History Relation Name Status Comments Mother Alive Social History Tobacco Use Types Packs/Day Years Used Date Smoking Tobacco: Never Smokeless Tobacco: Never Tobacco Cessation:Counseling Given: Not Answered Alcohol Use Standard Drinks/Week Comments No 0 (1 standard drink = 0.6 oz pur e alcohol) Housing Instability Answer Date Recorde d Are you worried that in the next 2 months you may not have stable housing? No 06/25/2024 Food Access & Nutrition Answer Date Rec orded Do you have access to a vari ety of food including fruits and vegetables? Yes 06/25/2024 Health Literacy Answer Date Recorded How often do you need to hav e someone help you when you read instructions, pamphlets, or other written material from your doctor or pharmacy? Never 06/25/2024 Caregiver: How often do you need to have someone help you when you read instructions, pamphlets, or other written material from your doctor or pharmacy? Not on file 06/25/2024 Financial Risk Answer Date Recorded How hard is it for you to pa y for the very basics like food, housing, medical care, and air conditioning / heating? Not very hard 06/25/2024 Transportation Answer Date Recorded Has the lack of transportati on kept you from meetings, work, or from getting things needed for daily living? No Has the lack of transportati on kept you from medical appointments or from getting medications? No 06/25/2024 Social Isolation Answer Date Recorded How often do you feel lonely or isolated from those around you? Sometimes 06/25/2024 Food Risk Answer Date Recorded Within the past 12 months we worried whether our food would run out before we got money to buy more. Never true 06/25/2024 Within the past 12 months th e food we bought just didn't last and we didn't have money to get more. Never true 06/25/2024 Dependent Care Answer Date Recorded Do you need help finding or paying for care for your loved ones. For example, director maternal child or elderly care for an older adult? No 06/25/2024 Education Answer Date Recorded Do you think completing more education or training, like finishing a GED, going to college, or learning a trade, would be helpful for you? No 06/25/2024 Employment and Income Answer Date Recor ded During the last four weeks, have you been actively looking for work? No 06/25/2024 Living Situation Answer Date Recorded What is your living situation? 0 06/25/2024 Comments No Sex and Gender Information Value Date Recorded Sex Assigned at Not on file Legal Sex Female 9:40 AM EST Gender Identity Not on file Sexual Orientation Not on file Obstetrics History Last Filed Vital Signs Vital Sign Reading Time Taken Comments Blood Pressure 129/96 09/02/2024 1:08 PM EDT Pulse 78 09/02/2024 1:08 PM EDT Temperature 36.8 ??C (98.3 ??F) 07/01/2024 4:45 PM ES T Respiratory Rate 18 09/02/2024 1:08 PM EDT Oxygen Saturation 99% 07/01/2024 4:45 PM EST Inhaled Oxygen Concentration - - Weight 83.6 kg (184 lb 3.2 oz) 09/02/2024 1:08 P M EDT Height 160 cm (5' 3 ) 09/02/2024 1:08 PM EDT Body Mass Index 32.63 09/02/2024 1:08 PM EDT Plan of Treatment Health Maintenance Due Date Last Done Comments Pneumococcal Vaccine: Pediatrics (0 to 5 Years) and At-Risk Patients (6 to 64 Years) (1 of 2 - PCV) 08/29/2015 Cervical Cancer Screening: Pap Smear 04/06/2022 04/06/2019, 04/06/2019, 04/06/2019 COVID-19 Vaccine ( season) 2024 01/11/2022, 10/01/2020, 09/12/2020 Influenza Vaccine (#1) 2024 , 06/08/2019, 08/07/2016, Additional history exists Hypertension/CHF/CAD Annual BMP Blood Test 02/12/2025 02/13/2024, 02/13/2024 Depression Screening 06/25/2025 06/25/2024 Social Influencers of Health Screening 06/25/2025 06/25/2024 Cholesterol Screening (Lipid Panel) 02/12/2029 02/13/2024, 02/13/2024 DTaP,Tdap,and Td Vaccines (9 - Td or Tdap) 09/23/2033 09/24/2023, 11/27/2016, 12/26/2007, Additional history exists Hepatitis B Vaccines Completed 09/29/1997, 1996, 1996 HIB Vaccines Completed 04/08/1998, 06/11, 04/05/1997, Additional history exists IPV Vaccines Completed 04/17/2001, 06/11, 04/05/1997, Additional history exists Meningococcal ACWY Vaccine Aged Out 12/26/2007 N o longer eligible based on patient's age to complete this topic HPV Vaccines Completed 02/21/2010, 07/2007, 12/26/2007 Varicella Vaccines Aged Out 02/21/2010 No longer eligible based on patient's age to complete this topic MMR Vaccines Completed 01/29/2017, 01/2001, 09/29/1997 HIV Screening Completed 04/06/2019 Hepatitis C Screening Completed 04/06/2019 Hepatitis A Vaccines Aged Out No long er eligible based on patient's age to complete this topic Meningococcal B Vaccine Aged Out No l onger eligible based on patient's age to complete this topic RSV Immunization Patients Under 20 months Aged Out No longer eligible based on patient's age to complete this topic Procedures Procedure Name Priority Date/Time Associated Diagnosis Comments POC , URINE DIAGNOSTIC Routine 09/02/2024 1:22 PM EDT Encounter for surveillance of injectable contraceptive ANNUAL BMP BLOOD TEST Routine 02/13/2024 LIPID PANEL Routine 02/13/2024 HEPATITIS C SCREENING Routine 04/06/2019 HIV SCREENING Routine 04/06/2019 PAP SMEAR Routine 04/06/2019 from Last 3 Months or Most Recently Relevant to Health Maintenance Results * POC , urine manually resulted (09/02/2024 1:22 PM EDT) HCG, Ur POC Negative Negative POC hCG Int QC Pass? Yes Yes Urine Urine specimen obtained by clean catch procedure / Unknown 09/02/2024 1:22 PM EDT Mary Beth Sanchez CNM POINT OF CARE TEST ENTER/ALISHA T ORDERABLES Final Result * Annual BMP Blood Test (02/13/2024) Pathologist [facility] Annual BMP Blood Test Abstracted Historical Provider HEALTH MAINTENANCE Final Result * (ABNORMAL) Lipid panel (02/13/2024) LDL/HDL Ratio 5(A) 0 - 4 Triglycerides 197(A) 0 - 150 mg/dL Cholesterol 225(A) 0 - 200 mg/dL HDL 44 >=40 mg/dL LDL Cholesterol 142(A) 0 - 100 mg/dL Blood Venous blood specimen / Unknown Historical Provider LAB BLOOD ORDERABLES Salud l Result * HIV Screening (04/06/2019) HIV Screening Abstracted Historical Provider HEALTH MAINTENANCE Final Result * Hepatitis C Screening (04/06/2019) Hepatitis C Screening Abstracted Historical Provider HEALTH MAINTENANCE Final Result * Pap smear (04/06/2019) 04/06/2019 Narrative HISTORICAL TESTING LAB RESULTING AGENCY - 04/15/2019 10:10 AM EST [id number] THINPREP PAP, IMAGED: ATYPICAL SQUAMOUS CELLS OF UNDETERMINED SIGNIFICANCE (ASCUS) . SHOAIB COTTON , TIFFANI(ASCP) (CASE SCREENED 04 08 2019) DEVIKA RUIZ M.D. , PATHOLOGIST (CASE ELECTRONICALLY SIGNED 04 14 2019) RESULT OF APTIMA HIGH RISK HPV ASSAY: HIGH RISK HPV: ??POSITIVE (SEROTYPES 16,18,31,33,35,39,45,51,52,56,58,59,66,68) COMPLETED ON 2019-04-14 ADEQUACY: SATISFACTORY ENDOCERVICAL/TRANSFORMATION ZONE COMPONENT PRESENT. SOURCE: THINPREP PAP HPV IF ASCUS, CERVICAL, IMAGED CLINICAL INFORMATION: HPV IF DIAGNOSIS OF ASCUS. Z12.4, Z01.419, HORMONES, PAP HX NONE WITH DEPO Mary Beth LIZAMA LAB CYTOLOGY ORDERABLES Salud l Result HISTORICAL TESTING LAB RESULTING AGENCY from Last 3 Months or Most Recently Relevant to Health Maintenance Insurance [facility] [place] [address] Care Teams Burglar Alarm Operator Relationship Specialty Start Date End Date Merary Mcdaniel MD [address] [place] [id number] PCP - General Internal Medicine 04/24/24
--- OUTSIDE RECORDS SUMMARY | 2024-09-15 15:36 | XMS_ITS | Encounter Summary ---
Author Organization [facility] Address [address] [place] [address] Phone Care Team Providers Care Data Processing Systems Consultant Name Role Phone Karlie Chapin Primary Care Provider [phone] Encounter Details Date Type Department Care Team (Late st Contact Info) Description 07/24/2020 Orders Only [facility] [address] [place] [phone] Bonnie Fox MD Social History Tobacco Use Types Packs/Day Years Used Date Smoking Tobacco: Never Alcohol Use Standard Drinks/Week Comments No 0 (1 standard drink = 0.6 oz pur e alcohol) Comments Unknown Sex and Gender Information Value Date Recorded Sex Assigned at Not on file Legal Sex Female 4:49 PM EST Gender Identity Not on file Sexual Orientation Not on file COVID-19 Exposure Response Date Recorded In the last month, have you been in contact with someone who was confirmed or suspected to have Coronavirus / COVID-19? Unable to assess 07/12/2020 10:22 AM EST documented as of this encounter Plan of Treatment Not on file documented as of this encounter Visit Diagnoses Not on filedocumented in this encounter Care Teams Data Processing Systems Consultant Relationship Specialty Start Date End Date Kalrie Chapin [address] [place] [phone] PCP - General 06/20/20 documented as of this encounter
--- OUTSIDE RECORDS SUMMARY | 2024-09-15 15:36 | XMS_ITS | Encounter Summary ---
Author Organization [facility] Address [address] [place] [address] Phone Care Team Providers Care Cloth Mercerizer Back Tender Name Role Phone Karlie Chapin Srinivas Primary Care Provider [phone] Encounter Details Date Type Department Care Team (Late st Contact Info) Description 01/23/2022 Telephone [facility] [address] [place] [phone] Inessa Garcia MA Social History Tobacco Use Types Packs/Day Years Used Date Smoking Tobacco: Never Smokeless Tobacco: Never Alcohol Use Standard Drinks/Week Comments No 0 (1 standard drink = 0.6 oz pur e alcohol) Comments Unknown Sex and Gender Information Value Date Recorded Sex Assigned at Not on file Legal Sex Female 4:49 PM EST Gender Identity Not on file Sexual Orientation Not on file documented as of this encounter Miscellaneous Notes * Telephone Encounter - Viki Sahu - 01/24/2022 9:07 AM EDT Pls advise * Telephone Encounter - Inessa Garcia MA - 01/23/2022 10:13 AM EDT George Limon, So pt called and said that the Migraine medication she is taking is not helping her and wanted to know if can prescribe her something Stronger? Not sure if you can help her with this. CB# [phone] Pharmacy: [facility] documented in this encounter Plan of Treatment Not on file documented as of this encounter Visit Diagnoses Not on filedocumented in this encounter Care Teams Cloth Mercerizer Back Tender Relationship Specialty Start Date End Date Karlie Chapin [address] [place] [phone] PCP - General 06/20/20 documented as of this encounter
--- OUTSIDE RECORDS SUMMARY | 2024-09-15 15:36 | XMS_ITS | Encounter Summary ---
Author Organization [facility] Address [address] [place] [address] Phone Care Team Providers Care Fur Sewer Name Role Phone Karlie Chapin Primary Care Provider [phone] Reason for Visit * Reason Comments Med Change Request Encounter Details Date Type Department Care Team (Late st Contact Info) Description 08/29/2021 Refill [facility] [address] [place] [phone] Pir Malcolm MD Hypertensive disorder Social History Tobacco Use Types Packs/Day Years [...] on file documented as of this encounter Plan of Treatment Not on file documented as of this encounter Visit Diagnoses Diagnosis Hypertensive disorder documented in this encounter Care Teams Fur Sewer Relationship Specialty Start Date End Date Karlie Chapin [address] [place] [phone] PCP - General 06/20/20 documented as of this encounter
[2024-09-15 19:06] LABS: Anion Gap 12 (12-20); Blood Urea Nitrogen 18 mg/dL (9-16); Carbon Dioxide 22 mmol/L (22-29); Chloride 111 mmol/L (96-108); Estimated Glomerular Filt Rate > 60; Potassium 4.2 mmol/L (3.3-5.1); Sodium 141 mmol/L (135-145)
[2024-09-15 19:34] LABS: Creatinine Urine 140.33 mg/dL
[2024-09-15 21:40] LABS: Protein/Creatinine Ratio, Ur 3.02 (<0.2); Total Protein Urine Random 424 mg/dL (<12)
== END 2024-09-15 12:56 | disposition home or self-care (01) ==
LOC: HO.HKASLDS 12:55
PROVIDERS: Visit Provider Internal Medicine Nephrology
DX: R80.8 Other proteinuria (principal); I15.1 Hypertension secondary to other renal disorders
CPT/HCPCS: 36415; 80051; 82565; 82570; 84156; 84520

== ENCOUNTER 2024-09-17 11:07 | Outpatient (AMB) | payer OTHER, SELFPAY ==
--- NOTE | 2024-09-17 11:09 | HO.NEPHOV ---
Vital Signs 09/17/24 11:10 Height 5 ft 3 in Weight 185 lb 6 oz BMI 32.8 BP 128/90 H Blood Pressure Location Lt brachial Position Sitting Pulse 70 Pulse Source Pulse Oximeter Pulse Oximetry (%) 98 Oxygen Delivery Method Room Air Intake Visit Reasons: 3mon follow-up w/labs Immigration Investigator Required: No Accompanied by: Self / Same As Patient Allergies ferumoxytol Allergy (Verified 09/17/24 11:14) Anaphylaxis iron Allergy (Verified 09/17/24 11:14) Unknown Do you need a note to return to daycare/school/sports/work: No HPI Comments Details: I had the pleasure of seeing Pushpa in follow up for her proteinuria. She has hereditary GN. She had a renal biopsy done in [facility] in 2016 and 2021. She has two children. She had been on diuretics and losartan which had been discontinued during recent but was restarted on enalapril 7.5 mg after child . She is post 8 months and is breast feeding. 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 She has no SOB, PND, orthopnea hematuria or edema. She is trying to be on low sodium diet. [facility] Medical History Hypertension Nephrotic syndrome Social History Alcohol intake: never Patient Tobacco Use Status: Never used Tobacco Review of Systems Const All systems reviewed & are unremarkable except as noted in HPI and below Physical Exam Vital Signs: Last Vital Signs Pulse 70 09/17/24 11:10 BP 128/90 H 09/17/24 11:10 Pulse Ox 98 09/17/24 11:10 Oxygen Delivery Method Room Air 09/17/24 11:10 BMI result Body Mass Index 32.8 Const General: comfortable and no acute distress Orientation/consciousness: patient oriented x3 HEENT Head: Yes normocephalic Mouth: Normal oral and palatal mucosa present Eyes EOM: EOMs intact bilaterally Neck Neck: Yes supple Resp Auscultation: clear to auscultation bilaterally Cardio Jugular venous distension: no JVD Rate: regular rate GI Palpation (GI): Soft to palpation Auscultation: normal bowel sounds General: Yes no CVA tenderness Back/Spine/Pelvis Back: no CVA tenderness Skin General skin exam: no rashes or lesions noted Neuro General: patient oriented x3 and moves all extremities Extrem General: Yes no pedal edema Results Reviewed Nephrology Results: Sodium 141 mmol/L (135-145) 09/15/24 Potassium 4.2 mmol/L (3.3-5.1) 09/15/24 Chloride 111 mmol/L (96-108) H 09/15/24 Carbon Dioxide 22 mmol/L (22-29) 09/15/24 BUN 18 mg/dL (9-16) H 09/15/24 Creatinine 0.75 mg/dL (0.5-1.4) 09/15/24 Urine Creatinine 140.33 mg/dL 09/15/24 Protein/Creatinin Ratio 3.02 (<0.2) H 09/15/24 Assessment & Plan Assessment & Plan (1) Hypertension: Code(s): I10 - Essential (primary) hypertension Category: Medical Qualifiers: Hypertension type: secondary to other renal disorders Qualified Code(s): I15.1 - Hypertension secondary to other renal disorders (2) Proteinuria: Code(s): R80.9 - Proteinuria, unspecified Category: Medical Qualifiers: Proteinuria type: other Qualified Code(s): R80.8 - Other proteinuria Plan Known to have hereditary GN Had a renal biopsy done in [facility] in 2016 and 2021 She had been on diuretics and losartan pre but off during Has been having about 3 grams of protein in urine in last few years (Has very strong family H/O renal disease (cousin) (Had been having confusion 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 Increased enalapril to 10 mg twice daily BP needs to be maintained at goal; Low sodium diet; Labs & F/U in 3 M Orders: Orders Blood Urea Nitrogen 3 Months I15.1 - Hypertension secondary to other renal disorders, R80.8 - Other proteinuria Creatinine 3 Months I15.1 - Hypertension secondary to other renal disorders, R80.8 - Other proteinuria Electrolytes 3 Months I15.1 - Hypertension secondary to other renal disorders, R80.8 - Other proteinuria Protein Creatinine Ratio, Ur 3 Months I15.1 - Hypertension secondary to other renal disorders, R80.8 - Other proteinuria Medications: Changed From enalapril maleate 10 mg PO DAILY 90 days 90 tabs 3RF To enalapril maleate 10 mg PO BID 90 days 180 tabs 3RF Coding Level of Care Code Est Pt Level 4 (90495) Diagnoses Hypertension secondary to other renal disorders I15.1 Hypertension type: secondary to other renal disorders Other proteinuria R80.8 Proteinuria type: other
[2024-09-17 11:10] VITALS: BP 128/90; PULSE 70; O2SAT 98; BMI 32.8
--- OUTSIDE RECORDS SUMMARY | 2024-09-17 13:27 | XMS_ITS | Clinical Summary ---
Author Organization [place] [address] [address] Address [address] [place], [place] [address], [place] [address] Phone Care Team Providers Care Feather Boner Name Role Phone Merary Mcdaniel MD Primary [...] Gynecology - [facility] [address] [facility] [place] [phone] Encounter for surveillance of injectable contraceptive (Primary Dx) 07/01/2024 4:30 PM EST Office Visit Adult Medicine [address] [phone] Melinda Solares PA Primary hypertension (Primary Dx); FSGS (focal segmental glomerulosclerosis); anxiety from Last 3 Months Immunizations Name Administration Dates Next Due Influenza Quadravalent, MDCK , 0.5ml, preservative free (Flucelvax) 6mo and older 06/08/2019 [employer] SARS-CoV-2 COVID-19, mRNA, LNP-S, preservative free 10/01/2020,09/12/2020 Surgical History Surgery Date Site/Laterality Comments SECTION PROCEDURE: IN DELIVERY ONLY; COMMENT: 2023 Medical History Medical [...] care for your loved ones. For example, early childhood education instructor or elderly care for an older adult? [...] season) 2024 01/11/2022, 10/01/2020, 09/12/2020 Influenza Vaccine (Season Ended) 2025 05/24/2023, 06/08/2019, 08/07/2016, Additional history exists Hypertension/CHF/CAD Annual [...] Annual BMP Blood Test (02/13/2024) Pathologist [facility] Annual BMP Blood Test Abstracted Historical Provider [...] RESULTING AGENCY - 04/15/2019 10:10 AM EST [id number] THINPREP PAP, IMAGED: ATYPICAL SQUAMOUS CELLS OF [...] Most Recently Relevant to Health Maintenance Insurance [facility] Care Teams Feather Boner Relationship Specialty Start Date End Date Merary Mcdaniel MD [address] [place] [phone] PCP - General Internal Medicine 04/24/24
--- OUTSIDE RECORDS SUMMARY | 2024-09-17 13:27 | XMS_ITS | Encounter Summary ---
Author Organization [facility] Address [address] [place] [address] Phone Care Team Providers Care Blending Tank Tender Helper Name Role Phone Karlie Chapin Srinivas Primary Care Provider [phone] Encounter Details Date Type Department Care Team (Late st Contact Info) Description 01/23/2022 Telephone [facility] [address] [place] [phone] Inessa Garcia MA Social History Tobacco Use [...] you can help her with this. CB# [phone] Pharmacy: [facility] on [facility] documented in this encounter Plan of Treatment Not on file documented as of this encounter Visit Diagnoses Not on filedocumented in this encounter Care Teams Blending Tank Tender Helper Relationship Specialty Start Date End Date Karlie Chapin [address] [place] [phone] PCP - General 06/20/20 documented as of this encounter
--- OUTSIDE RECORDS SUMMARY | 2024-09-17 13:27 | XMS_ITS | Encounter Summary ---
Author Organization [facility] Address [address] [place] [address] Phone Care Team Providers Care Plant Attendant Name Role Phone Karlie Chapin Primary Care Provider [phone] Reason for Visit * Reason Comments Med Change Request Encounter Details Date Type Department Care Team (Late st Contact Info) Description 08/29/2021 Refill [facility] [address] [place] [phone] Pir Malcolm MD Hypertensive disorder Social History [...] disorder documented in this encounter Care Teams Plant Attendant Relationship Specialty Start Date End Date Karlie Chapin [address] [place] [phone] PCP - General 06/20/20 documented as of this encounter
--- OUTSIDE RECORDS SUMMARY | 2024-09-17 13:27 | XMS_ITS | Clinical Summary ---
Author Organization [facility] Address [address] [facility] [address] [place] [address] Phone Care Team Providers Care [employer] Wireman Name Role Phone Karlie Chapin S Primary Care Provider [phone] Allergies Active Allergy Reactions Criticality Noted Date [...] Date Patient currently 08/08/2020 0 02/15/2022 Immunizations Immunization Administration Dates Next Due DTaP 04/17/2001, 8,07/08/1997,04/05/1997,12/19 [...] Due Date Last Done Comments Pneumococcal Vaccine: Peds ( 0 to 5 Years) and At-Risk Patients (6 to 49 Years) (1 of 2 - PCV) 2002 Influenza Vaccine (Season Ended) 2025 08/07/19 17, 02/21/2010 Hepatitis B Vaccine Completed 09/29/1997, 1996, [id number] [place] [address] Medicaid Care Teams [employer] Wireman Relationship Specialty Start Date End Date Karlie Chapin [address] [place] [phone] PCP - General 06/20/20
--- OUTSIDE RECORDS SUMMARY | 2024-09-17 13:27 | XMS_ITS | Encounter Summary ---
Author Organization [facility] Address [address] [place] [address] Phone Care Team Providers Care Flat Lock Operator Name Role Phone Karlie Chapin Primary Care Provider [phone] Encounter Details Date Type Department Care Team (Late st Contact Info) Description 07/24/2020 Orders Only [facility] [address] [place] [phone] Bonnie Fox MD Social History Tobacco Use [...] on filedocumented in this encounter Care Teams Flat Lock Operator Relationship Specialty Start Date End Date Karlie Chapin [address] [place] [phone] PCP - General 06/20/20 documented as of this encounter
== END 2024-09-17 11:37 | disposition home or self-care (01) ==
LOC: HO.HKAS 11:07
PROVIDERS: Visit Provider Internal Medicine Nephrology
DX: I15.1 Hypertension secondary to other renal disorders (principal); R80.8 Other proteinuria
CPT/HCPCS: 99214

== ENCOUNTER → 2024-09-17 11:07 | Outpatient (BNVA) | payer OTHER, SELFPAY | PROVIDERS: Visit Provider Internal Medicine Nephrology | DX: I15.1 Hypertension secondary to other renal disorders (principal); R80.8 Other proteinuria | CPT/HCPCS: 99212 ==

== ENCOUNTER 2024-12-15 09:05 | Outpatient (REF) | payer OTHER, SELFPAY ==
--- OUTSIDE RECORDS SUMMARY | 2024-12-15 09:25 | XMS_ITS | Encounter Summary ---
Author Organization [facility] Address [address] [place] [address] Phone Care Team Providers Care Pipeman Name Role Phone Karlie Chapin Primary Care Provider [phone] Reason for Visit * Reason Comments Med Change Request Encounter Details Date Type Department Care Team (Late st Contact Info) Description 08/29/2021 Refill [facility] [address] [place] [phone] Pir Malcolm MD Hypertensive disorder Social History [...] disorder documented in this encounter Care Teams Pipeman Relationship Specialty Start Date End Date Karlie Chapin [address] [place] [phone] PCP - General 06/20/20 documented as of this encounter
--- OUTSIDE RECORDS SUMMARY | 2024-12-15 09:25 | XMS_ITS | Clinical Summary ---
Author Organization [place] [address] [facility] Building Address [address] [place], [place] [address], [place] [address] Phone Care Team Providers Care Manager Programs Name Role Phone Merary Mcdaniel MD Primary Care Pr ovider Allergies Active Allergy Reactions Criticality Noted Date Comments Ferumoxytol Anaphylaxis High 08/08/2020 Tolerates Venofer Iron Other High 03/05/2022 Other reaction(s): Not Indicated Chest tightness Medications medroxyPROGESTE Tyler 150 mg/mL injection Inject 1 mL into the muscle Every 3 Months. 02/06/2024 Active enalapril (VASOTEC) 10 mg tablet Take 1 tablet (10 mg total) by mouth 1 (one) time each day. 90 tablet 1 11/05/2024 Active sertraline (ZOLOFT) 50 mg tablet Take 0.5 tab daily for two weeks then increase to 1 tab daily 90 tablet 1 11/05/2024 Active Hospital, Clinic, or Other Facility Administered [...] Glomerulonephritis 05/23/2017 Overview (03/19/2024): Focal segmental--Dr Sam oCol Hypertension 05/23/2017 Migraine 05/23/2017 QT prolongation 05/23/2017 Encounters Date Type Department Care Team Description 11/11/2024 11:08 AM EDT - 11/11/2024 11:59 PM EDT Hospital Encounter Radiology [facility] - [address] [phone] Family history of brain aneurysm; Other migraine without status migrainosus, not intractable Discharge Disposition: Home or Self Care 11/11/2024 11:08 AM EDT - 11/11/2024 11:59 PM EDT Hospital Encounter Radiology Department - [address] [phone] Family history of brain aneurysm; Other migraine without status migrainosus, not intractable Discharge Disposition: Home or Self Care 11/05/2024 9:00 AM EDT Office Visit Adult Medicine [address] [phone] Melinda Solares PA Primary hypertension (Primary Dx); FSGS (focal segmental glomerulosclerosis); Mixed hyperlipidemia; Anxiety; Family history of brain aneurysm; Other migraine without status migrainosus, not intractable from Last 3 Months Immunizations Name Administration Dates Next Due Influenza Quadravalent, MDCK , 0.5ml, preservative free (Flucelvax) 6mo and older 06/08/2019 RF Controls SARS-CoV-2 COVID-19, mRNA, LNP-S, preservative free 10/01/2020,09/12/2020 Surgical History Surgery Date Site/Laterality Comments SECTION PROCEDURE: RI DELIVERY ONLY; COMMENT: 2023 Medical History Medical [...] care for your loved ones. For example, childcare provider or elderly care for an older adult? [...] Sign Reading Time Taken Comments Blood Pressure 118/78 11/05/2024 9:04 AM EDT Pulse 88 11/05/2024 9:04 AM EDT Temperature 36.6 C (97.9 F) 11/05/2024 9:04 AM EDT Respiratory Rate 18 09/02/2024 1:08 PM EDT Oxygen Saturation 99% 11/05/2024 9:04 AM EDT Inhaled Oxygen Concentration - - Weight 85.9 kg (189 lb 4.8 oz) 11/05/2024 9:04 A M EDT Height 160 cm (5' 2.99 ) 11/05/2024 9:04 AM EDT Body Mass Index 33.54 11/05/2024 9:04 AM EDT Plan of Treatment Upcoming Encounters Date Type Department Care Team (Late st Contact Info) Description 06/04/2025 8:00 AM EST Office Visit Adult Medicine [address] [phone] Merary Mcdaniel MD [address] [place] [phone] Health Maintenance Due Date Last Done Comments Pneumococcal Vaccine: Pediatrics (0 to 5 Years) and At-Risk Patients (6 to 49 Years) (1 of 2 - PCV) 08/29/2015 Cervical Cancer Screening: Pap Smear 04/06/2022 04/06/2019, 04/06/2019, 04/06/2019 COVID-19 Vaccine ( season) 2024 01/11/2022, 10/01/2020, 09/12/2020 Influenza Vaccine (#1) 2025 , 06/08/2019, 08/07/2016, Additional history exists Depression Screening 06/25/2025 06/25/2024 Social Influencers of Health Screening 06/25/2025 06/25/2024 Hypertension/CHF/CAD Annual BMP Blood Test 11/05/2025 11/05/2024, 02/13/2024, 02/13/2024 Cholesterol Screening (Lipid Panel) 11/05/2029 11/05/2024, 02/13/2024, 02/13/2024 DTaP,Tdap,and Td Vaccines (9 - [...] Procedure Name Priority Date/Time Associated Diagnosis Comments MR ANGIO HEAD WO CONTRAST Routine 11/11/2024 12:00 PM EDT Family history of brain aneurysm Other migraine without status migrainosus, not intractable MR BRAIN WO CONTRAST Routine 11/11/2024 12:00 PM EDT Family history of brain aneurysm Other migraine without status migrainosus, not intractable COMPREHENSIVE METABOLIC PANEL Routine 11/05/2024 10:02 AM EDT Primary hypertension LIPID PANEL WITH REFLEX TO DIRECT LDL Routine 11/05/2024 10:02 AM EDT Mixed hyperlipidemia HEPATITIS C SCREENING Routine 04/06/2019 HIV SCREENING Routine 04/06/2019 PAP SMEAR Routine 04/06/2019 from Last 3 Months or Most Recently Relevant to Health Maintenance Results * MR Angio Head wo Contrast (11/11/2024 12:00 PM EDT) Anatomical Region Laterality Modality Head and Neck Magnetic Resonan ce 11/11/2024 7:01 PM EDT Impressions 11/11/2024 7:05 PM EDT Impression:Normal MRA of the [place]. -------- FINAL REPORT -------- Dictated By: Jessica Newby Dictated Date: 11/11/2024 19:01 ET Assigned Physician: Jessica Newby Reviewed and Electronically Signed By: Jessica Newby Signed Date: 11/11/2024 19:05 ET Workstation ID: [id number] Transcribed By: Self Edit Transcribed Date: 11/11/2024 19:01 ET Narrative 11/11/2024 7:05 PM EDT MRA HEAD Clinical Statement: Cerebral aneurysm screening, genetic risk history of headache, family history of brain aneurysm Comparison: MRI brain from 11/11/2024 Technique: 3-D time of flight magnetic resonance angiographic images of the [place] were obtained and presented with the source images, compression image, and maximum intensity projection images in rotating format. Findings: The vertebral arteries are codominant. The basilar artery is normal in appearance and gives off normal superior cerebellar and posterior cerebral arteries. There are small caliber posterior communicating arteries bilaterally. The internal carotid arteries are normal from the distal cervical segments to the carotid terminus. The middle and anterior cerebral arteries are normal in appearance. There is no evidence of significant intracranial stenosis, major branch occlusion, aneurysm, or vascular malformation. Procedure Note Jessica Newby MD - 11/11/2024 MRA HEAD Clinical Statement: Cerebral aneurysm screening, genetic risk history of headache, family history of brain aneurysm Comparison: MRI brain from 11/11/2024 Technique: 3-D time of flight magnetic resonance angiographic images ofthe [place] were obtained and presented with the source images,compression image, and maximum intensity projection images in rotatingformat. Findings: The vertebral arteries are codominant. The basilar artery is normal inappearance and gives off normal superior cerebellar and posterior cerebralarteries. There are small caliber posterior communicating arteriesbilaterally. The internal carotid arteries are normal from the distalcervical segments to the carotid terminus. The middle and anteriorcerebral arteries are normal in appearance. There is no evidence ofsignificant intracranial stenosis, major branch occlusion, aneurysm, orvascular malformation. IMPRESSION: Impression:Normal MRA of the [place]. -------- FINAL REPORT -------- Dictated By: Jessica Newby Dictated Date: 11/11/2024 19:01 ET Assigned Physician: Jessica Newby Reviewed and Electronically Signed By: Jessica Newby Signed Date: 11/11/2024 19:05 ET Workstation ID: [id number] Transcribed By: Self Edit Transcribed Date: 11/11/2024 19:01 ET Melinda MINA IMG MRI PROCEDURES Final Resu lt * MR Brain wo Contrast (11/11/2024 12:00 PM EDT) Anatomical Region Laterality Modality Head and Neck Magnetic Resonan ce 11/11/2024 3:38 PM EDT Impressions 11/11/2024 3:50 PM EDT Impression: 1. Unremarkable MRI of the brain -------- FINAL REPORT -------- Dictated By: Jessica Newby Dictated Date: 11/11/2024 15:38 ET Assigned Physician: Jessica Newby Reviewed and Electronically Signed By: Jessica Newby Signed Date: 11/11/2024 15:50 ET Workstation ID: [id number] Transcribed By: Self Edit Transcribed Date: 11/11/2024 15:38 ET Narrative 11/11/2024 3:50 PM EDT MRI BRAIN WITHOUT CONTRAST Clinical Statement: history of headaches. family history of brain aneurysm Comparison: MRA brain from 11/11/2024 Technique: Multiplanar, multisequence MR images of the brain were obtained without contrast. Findings: There is no evidence of diffusion restriction. The brain parenchyma is within normal limits. Normal intracranial flow voids. The ventricular system is normal in size and morphology. The basilar cisterns are normal. The craniocervical junction is normal. The orbits and globes are within normal limits. Trace mucosal thickening within the paranasal sinuses. Procedure Note Jessica Newby MD - 11/11/2024 MRI BRAIN WITHOUT CONTRAST Clinical Statement: history of headaches. family history of brainaneurysm Comparison: MRA brain from 11/11/2024 Technique: Multiplanar, multisequence MR images of the brain wereobtained without contrast. Findings: There is no evidence of diffusion restriction. The brainparenchyma is within normal limits. Normal intracranial flow voids. Theventricular system is normal in size and morphology. The basilar cisternsare normal. The craniocervical junction is normal. The orbits and globesare within normal limits. Trace mucosal thickening within the paranasalsinuses. IMPRESSION: Impression: 1. Unremarkable MRI of the brain -------- FINAL REPORT -------- Dictated By: Jessica Newby Dictated Date: 11/11/2024 15:38 ET Assigned Physician: Jessica Newby Reviewed and Electronically Signed By: Jessica Newby Signed Date: 11/11/2024 15:50 ET Workstation ID: [id number] Transcribed By: Self Edit Transcribed Date: 11/11/2024 15:38 ET us Melinda MINA [facility] MRI PROCEDURES Final Resu lt * (ABNORMAL) Lipid panel with reflex to direct LDL (11/05/2024 10:02 AM EDT) Cholesterol 229(H) 0 - 200 mg/dL LAB CHEMISTRY METHOD 11/05/2024 1:52 PM EDT [facility] Triglycerides 107 0 - 150 mg/dL LAB CHEMISTRY METHOD 11/05/2024 1:52 PM EDT [facility] HDL 52 >=40 mg/dL LAB CHEMISTRY METHOD 11/05/2024 1:52 PM EDT [facility] LDL Calculated 156(H) 0 - 100 mg/dL LAB CHEMISTRY METHOD 11/05/2024 1:52 PM EDT [facility] VLDL Cholesterol Dalton 21.4 mg/dL LAB CHEMISTRY METHOD 11/05/2024 1:52 PM EDT [facility] Non HDL Chol. (LDL+VLDL) 177(H) <145 mg/dL LAB CHEMISTRY METHOD 11/05/2024 1:52 PM EDT [facility] Chol/HDL Ratio 4.4 0.0 - 4.4 LAB CHEMISTRY METHOD 11/05/2024 1:52 PM EDT [facility] Blood Venous blood specimen / Unknown Venipuncture / Unknown 11/05/2024 10:02 AM EDT 11/05/2024 10:02 AM EDT Melinda MINA LAB BLOOD ORDERABLES Final Re sult [facility] [address] [place] [address], * (ABNORMAL) Comprehensive metabolic panel (11/05/2024 10:02 AM EDT) Sodium 139 133 - 145 mmol/L LAB CHEMISTRY METHOD 11/05/2024 1:52 PM EDT [facility] Potassium 4.2 3.5 - 5.5 mmol/L LAB CHEMISTRY METHOD 11/05/2024 1:52 PM EDT [facility] Chloride 111(H) 96 - 110 mmol/L LAB CHEMISTRY METHOD 11/05/2024 1:52 PM EDT [facility] CO2 23 21 - 32 mmol/L LAB CHEMISTRY METHOD 11/05/2024 1:52 PM [facility] Anion Gap 5 3 - 11 LAB CHEMISTRY METHOD 11/05/2024 1:52 PM [facility] Glucose 76 70 - 100 mg/dL LAB CHEMISTRY METHOD 11/05/2024 1:52 PM [facility] BUN 15 5 - 25 mg/dL LAB CHEMISTRY METHOD 11/05/2024 1:52 PM [facility] Creatinine 0.83 0.50 - 1.10 mg/dL LAB CHEMISTRY METHOD 11/05/2024 1:52 PM [facility] eGFR 99 >=60 mL/min/1. 73m2 LAB CHEMISTRY METHOD 11/05/2024 1:52 PM [facility] Comment:Calculation based on the Chronic Kidney Disease Epidemiology Collaboration (CKD-EPI) equation refit without adjustment for race. BUN/Creatinine Ratio 18.1 LAB CHEMISTRY METHOD 11/05/2024 1:52 PM [facility] Calcium 9.1 8.5 - 10.5 mg/dL LAB CHEMISTRY METHOD 11/05/2024 1:52 PM [facility] AST (SGOT) 11 10 - 42 unit/L LAB CHEMISTRY METHOD 11/05/2024 1:52 PM [facility] ALT (SGPT) 18 10 - 60 unit/L LAB CHEMISTRY METHOD 11/05/2024 1:52 PM [facility] Alkaline Phosphatase 112 42 - 121 unit/L LAB CHEMISTRY METHOD 11/05/2024 1:52 PM [facility] Total Protein 6.9 6.0 - 8.0 g/dL LAB CHEMISTRY METHOD 11/05/2024 1:52 PM [facility] Albumin 3.0(L) 3.2 - 5.0 g/dL LAB CHEMISTRY METHOD 11/05/2024 1:52 PM [facility] Total Bilirubin 0.3 0.0 - 1.4 mg/dL LAB CHEMISTRY METHOD 11/05/2024 1:52 PM EDT [facility] Blood Venous blood specimen / Unknown Venipuncture / Unknown 11/05/2024 10:02 AM EDT 11/05/2024 10:02 AM EDT Melinda MINA LAB BLOOD ORDERABLES Final Re sult [facility] [address] [place] [address], [place] [phone] * HIV Screening (04/06/2019) HIV Screening Abstracted Historical Provider HEALTH MAINTENANCE Final Result * Hepatitis C Screening (04/06/2019) Hepatitis C Screening Abstracted Historical Provider HEALTH MAINTENANCE Final Result * Pap smear (04/06/2019) 04/06/2019 Narrative HISTORICAL TESTING LAB RESULTING AGENCY - 04/15/2019 10:10 AM EST [id number] THINPREP PAP, IMAGED: ATYPICAL SQUAMOUS CELLS OF UNDETERMINED SIGNIFICANCE (ASCUS) . TIFFANI BARTON(ASCP) (CASE SCREENED 04 08 2019) DEVIKA RUIZ M.D. , PATHOLOGIST (CASE ELECTRONICALLY SIGNED 04 14 2019) RESULT OF APTIMA HIGH RISK HPV ASSAY: HIGH RISK HPV: POSITIVE (SEROTYPES 16,18,31,33,35,39,45,51,52,56,58,59,66,68) COMPLETED ON 2019-04-14 ADEQUACY: SATISFACTORY ENDOCERVICAL/TRANSFORMATION ZONE COMPONENT PRESENT. SOURCE: THINPREP PAP HPV IF ASCUS, CERVICAL, IMAGED CLINICAL INFORMATION: HPV IF DIAGNOSIS OF ASCUS. Z12.4, Z01.419, HORMONES, PAP HX NONE WITH DEPO us Mary Beth Sanchez CNM LAB CYTOLOGY ORDERABLES Salud connor Result HISTORICAL TESTING LAB RESULTING AGENCY from Last 3 Months or Most Recently Relevant to Health Maintenance Insurance [facility] [place] [address] Care Teams Manager Programs Relationship Specialty Start Date End Date Merary Mcdaniel MD [address] [place] [phone] PCP - General Internal Medicine 04/24/24
[2024-12-15 15:29] LABS: Anion Gap 11 (12-20); Blood Urea Nitrogen 13 mg/dL (9-16); Carbon Dioxide 25 mmol/L (22-29); Chloride 109 mmol/L (96-108); Estimated Glomerular Filt Rate > 60; Potassium 4.0 mmol/L (3.3-5.1); Sodium 141 mmol/L (135-145)
[2024-12-15 16:08] LABS: Protein/Creatinine Ratio, Ur 2.03 (<0.2); Total Protein Urine Random 292 mg/dL (<12)
== END 2024-12-15 09:06 | disposition home or self-care (01) ==
LOC: HO.HKASLDS 09:05
PROVIDERS: Visit Provider Internal Medicine Nephrology
DX: R80.8 Other proteinuria (principal); I15.1 Hypertension secondary to other renal disorders
CPT/HCPCS: 36415; 80051; 82565; 82570; 84156; 84520

== ENCOUNTER 2024-12-18 09:54 | Outpatient (AMB) | payer OTHER, SELFPAY ==
--- OUTSIDE RECORDS SUMMARY | 2024-12-18 10:18 | XMS_ITS | Clinical Summary ---
Author Organization [place] [address] [facility] [facility] Address [address] [place], [place] [address] [address] Phone Care Team Providers Care Solvent Process Extractor Operator Name Role Phone Merary Mcdaniel MD [...] 11/11/2024 11:59 PM EDT Hospital Encounter Radiology [facility] - [address] [address] Family history of brain aneurysm; Other migraine without status migrainosus, not intractable Discharge Disposition: Home or Self Care 11/11/2024 11:08 AM EDT - 11/11/2024 11:59 PM EDT Hospital Encounter Radiology Department - [address] [phone] Family history of brain aneurysm; Other migraine without status migrainosus, not intractable Discharge Disposition: Home or Self Care 11/05/2024 9:00 AM EDT Office Visit Adult Medicine [address] [phone] Melinda Solares PA Primary hypertension (Primary Dx); FSGS (focal segmental glomerulosclerosis); Mixed hyperlipidemia; Anxiety; Family history of brain aneurysm; Other migraine without status migrainosus, not intractable from Last 3 Months Immunizations Name Administration Dates Next Due Influenza Quadravalent, MDCK , 0.5ml, preservative free (Flucelvax) 6mo and older 06/08/2019 [employer] SARS-CoV-2 COVID-19, mRNA, LNP-S, preservative free 10/01/2020,09/12/2020 Surgical History Surgery Date Site/Laterality Comments SECTION PROCEDURE: SC DELIVERY ONLY; COMMENT: 2023 Medical History Medical [...] your loved ones. For example, early childhood associate teacher or elderly care for an older adult? [...] 8:00 AM EST Office Visit Adult Medicine [address] [phone] Merary Mcdaniel MD [address] [place] [phone] Health Maintenance Due Date Last Done Comments [...] 7:05 PM EDT Impression:Normal MRA of [place]. -------- FINAL REPORT -------- Dictated By: Jessica Newby Dictated Date: 11/11/2024 19:01 ET Assigned Physician: Jessica Newby Reviewed and Electronically Signed By: Jessica Newby Signed Date: 11/11/2024 19:05 ET Workstation ID: [id number] Transcribed By: Self Edit Transcribed Date: 11/11/2024 19:01 ET Narrative 11/11/2024 7:05 PM EDT MRA HEAD Clinical Statement: Cerebral aneurysm screening, genetic risk history of headache, family history of brain aneurysm Comparison: MRI brain from 11/11/2024 Technique: 3-D time of flight magnetic resonance angiographic images of the [place] were obtained and presented with [...] of flight magnetic resonance angiographic images [place] were obtained and presented with [...] orvascular malformation. IMPRESSION: Impression:Normal MRA of [place]. -------- FINAL REPORT -------- Dictated By: Jessica Newby Dictated Date: 11/11/2024 19:01 ET Assigned Physician: Jessica Newby Reviewed and Electronically Signed By: Jessica Newby Signed Date: 11/11/2024 19:05 ET Workstation ID: [id number] Transcribed By: Self Edit Transcribed Date: 11/11/2024 [...] Signed Date: 11/11/2024 15:50 ET Workstation ID: [id number] Transcribed By: Self Edit Transcribed Date: 11/11/2024 [...] Signed Date: 11/11/2024 15:50 ET Workstation ID: [id number] Transcribed By: Self Edit Transcribed Date: 11/11/2024 15:38 ET us Melinda MINA [facility] MRI PROCEDURES Final Resu lt * (ABNORMAL) Lipid panel with reflex to direct LDL (11/05/2024 10:02 AM EDT) Cholesterol 229(H) 0 - 200 mg/dL LAB CHEMISTRY METHOD 11/05/2024 1:52 PM EDT [facility] Triglycerides 107 0 - 150 mg/dL LAB CHEMISTRY METHOD 11/05/2024 1:52 PM EDT [facility] HDL 52 >=40 mg/dL LAB CHEMISTRY METHOD 11/05/2024 1:52 PM EDT [facility] LDL Calculated 156(H) 0 - 100 mg/dL LAB CHEMISTRY METHOD 11/05/2024 1:52 PM EDT [facility] VLDL Cholesterol [place] 21.4 mg/dL LAB CHEMISTRY METHOD 11/05/2024 1:52 PM EDT [facility] Non HDL Chol. (LDL+VLDL) 177(H) <145 mg/dL LAB CHEMISTRY METHOD 11/05/2024 1:52 PM EDT [facility] Chol/HDL Ratio 4.4 0.0 - 4.4 LAB CHEMISTRY METHOD 11/05/2024 1:52 PM EDT [facility] Blood Venous blood specimen / Unknown Venipuncture / Unknown 11/05/2024 10:02 AM EDT 11/05/2024 10:02 AM EDT Melinda MINA LAB BLOOD ORDERABLES Final Re sult [facility] [address] [place] [address], * (ABNORMAL) Comprehensive metabolic panel (11/05/2024 10:02 AM EDT) Sodium 139 133 - 145 mmol/L LAB CHEMISTRY METHOD 11/05/2024 1:52 PM EDT [facility] Potassium 4.2 3.5 - 5.5 mmol/L LAB CHEMISTRY METHOD 11/05/2024 1:52 PM EDT [facility] Chloride 111(H) 96 - 110 mmol/L LAB CHEMISTRY METHOD 11/05/2024 1:52 PM EDT [facility] CO2 23 21 - 32 mmol/L LAB CHEMISTRY METHOD 11/05/2024 1:52 PM [facility] Anion Gap 5 3 - 11 LAB CHEMISTRY METHOD 11/05/2024 1:52 PM [facility] Glucose 76 70 - 100 mg/dL LAB CHEMISTRY METHOD 11/05/2024 1:52 PM [facility] BUN 15 5 - 25 mg/dL LAB CHEMISTRY METHOD 11/05/2024 1:52 PM [facility] Creatinine 0.83 0.50 - 1.10 mg/dL LAB CHEMISTRY METHOD 11/05/2024 1:52 PM [facility] eGFR 99 >=60 mL/min/1. 73m2 LAB CHEMISTRY METHOD 11/05/2024 1:52 PM [facility] Comment:Calculation based on the Chronic Kidney Disease Epidemiology Collaboration (CKD-EPI) equation refit without adjustment for race. BUN/Creatinine Ratio 18.1 LAB CHEMISTRY METHOD 11/05/2024 1:52 PM [facility] Calcium 9.1 8.5 - 10.5 mg/dL LAB CHEMISTRY METHOD 11/05/2024 1:52 PM [facility] AST (SGOT) 11 10 - 42 unit/L LAB CHEMISTRY METHOD 11/05/2024 1:52 PM [facility] ALT (SGPT) 18 10 - 60 unit/L LAB CHEMISTRY METHOD 11/05/2024 1:52 PM [facility] Alkaline Phosphatase 112 42 - 121 unit/L LAB CHEMISTRY METHOD 11/05/2024 1:52 PM [facility] Total Protein 6.9 6.0 - 8.0 g/dL LAB CHEMISTRY METHOD 11/05/2024 1:52 PM [facility] Albumin 3.0(L) 3.2 - 5.0 g/dL LAB CHEMISTRY METHOD 11/05/2024 1:52 PM [facility] Total Bilirubin 0.3 0.0 - 1.4 mg/dL LAB CHEMISTRY METHOD 11/05/2024 1:52 PM EDT [facility] Blood Venous blood specimen / Unknown Venipuncture / Unknown 11/05/2024 10:02 AM EDT 11/05/2024 10:02 AM EDT Melinda MINA LAB BLOOD ORDERABLES Final Re sult [facility] [address] [place] [address], [place] [phone] * HIV Screening (04/06/2019) HIV Screening Abstracted Historical Provider HEALTH MAINTENANCE Final Result * Hepatitis C Screening (04/06/2019) Hepatitis C Screening Abstracted Historical Provider HEALTH MAINTENANCE Final Result * Pap smear (04/06/2019) 04/06/2019 Narrative HISTORICAL TESTING LAB RESULTING AGENCY - 04/15/2019 10:10 AM EST [id number] THINPREP PAP, IMAGED: ATYPICAL SQUAMOUS CELLS OF [...] Most Recently Relevant to Health Maintenance Insurance [facility] [place] [address] Care Teams Solvent Process Extractor Operator Relationship Specialty Start Date End Date Merary Mcdaniel MD [address] [place] [id number] PCP - General Internal Medicine 04/24/24
--- OUTSIDE RECORDS SUMMARY | 2024-12-18 10:18 | XMS_ITS | Encounter Summary ---
Author Organization [facility] Address [address] [place] [address] Phone Care Team Providers Care Hand Frame Surgical Elastic Knitter Name Role Phone Karlie Chapin Primary Care Provider [phone] Reason for Visit * Reason Comments Med Change Request Encounter Details Date Type Department Care Team (Late st Contact Info) Description 08/29/2021 Refill [facility] [address] [place] [id number] Pir Malcolm MD Hypertensive disorder Social History [...] disorder documented in this encounter Care Teams Hand Frame Surgical Elastic Knitter Relationship Specialty Start Date End Date Karlie Chapin [address] [place] [id number] PCP - General 06/20/20 documented as of this encounter
[2024-12-18 10:19] VITALS: BP 138/90; PULSE 85; O2SAT 98; BMI 33.5
--- NOTE | 2024-12-18 10:19 | HO.NEPHOV_ITS ---
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 She has hereditary GN. She had a renal biopsy done in [facility] in 2016 and 2021. She has two children. She had been on diuretics and losartan which had been discontinued during recent but was restarted on enalapril 7.5 mg after child which has been steadily increasing . She is post 14 months and is breast feeding. 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 She has no SOB, PND, orthopnea hematuria or edema. She is trying to be on low sodium diet. [facility] Medical History Hypertension Nephrotic syndrome Social History Alcohol intake: never Patient Tobacco Use Status: Never used Tobacco Review of Systems Const All systems reviewed & are unremarkable except as noted in HPI and below Physical Exam Vital Signs: Last Vital Signs Pulse 85 12/18/24 10:19 BP 138/90 H 12/18/24 10:19 Pulse Ox 98 12/18/24 10:19 Oxygen Delivery Method Room Air 12/18/24 10:19 BMI result Body Mass Index 33.5 Const General: comfortable and no acute distress Orientation/consciousness: patient oriented x3 HEENT Head: Yes normocephalic Mouth: Normal oral and palatal mucosa present Eyes EOM: EOMs intact bilaterally Neck Neck: Yes supple Resp Auscultation: clear to auscultation bilaterally Cardio Jugular venous distension: no JVD Rate: regular rate GI Palpation (GI): Soft to palpation Auscultation: normal bowel sounds General: Yes no CVA tenderness Back/Spine/Pelvis Back: no CVA tenderness Skin General skin exam: no rashes or lesions noted Neuro General: patient oriented x3 and moves all extremities Extrem General: Yes no pedal edema Results Reviewed Nephrology Results: Sodium, (135-145) 141 mmol/L 12/15/24 Potassium, (3.3-5.1) 4.0 mmol/L 12/15/24 Chloride, (96-108) 109 mmol/L H 12/15/24 Carbon Dioxide, (22-29) 25 mmol/L 12/15/24 BUN, (9-16) 13 mg/dL 12/15/24 Creatinine, (0.5-1.4) 0.85 mg/dL 12/15/24 Urine Creatinine 143.69 mg/dL 12/15/24 Protein/Creatinin Ratio, (<0.2) 2.03 H 12/15/24 Assessment & Plan Assessment & Plan (1) Hypertension: Code(s): I10 - Essential (primary) hypertension Category: Medical Qualifiers: Hypertension type: secondary to other renal disorders Qualified Code(s): 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 - Hypertension secondary to other renal disorders (2) Nephrotic syndrome: Code(s): N04.9 - Nephrotic syndrome with unspecified morphologic changes Category: Medical (3) Proteinuria: Code(s): R80.9 - Proteinuria, unspecified Category: Medical Qualifiers: Proteinuria type: other Qualified Code(s): R80.8 - Other proteinuria Plan Known to have hereditary GN Had a renal biopsy done in [facility] in 2016 and 2021 She had been on diuretics and losartan pre but off during Has been having about 3 grams of protein in urine in last few years (Has very strong family H/O renal disease (cousin) (Had been having confusion 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 Increased enalapril to 20 mg twice daily BP needs to be maintained at goal; Low sodium diet; Labs & F/U in 3 M Orders: Orders Lipid Panel 3 Months I15.1 - Hypertension secondary to other renal disorders, N04.9 - Nephrotic syndrome with unspecified morphologic changes, R80.8 - Other proteinuria Electrolytes 3 Months I15.1 - Hypertension secondary to other renal disorders, N04.9 - Nephrotic syndrome with unspecified morphologic changes, R80.8 - Other proteinuria Blood Urea Nitrogen 3 Months I15.1 - Hypertension secondary to other renal disorders, N04.9 - Nephrotic syndrome with unspecified morphologic changes, R80.8 - Other proteinuria Protein Creatinine Ratio, Ur 3 Months I15.1 - Hypertension secondary to other renal disorders, N04.9 - Nephrotic syndrome with unspecified morphologic changes, R80.8 - Other proteinuria Creatinine 3 Months I15.1 - Hypertension secondary to other renal disorders, N04.9 - Nephrotic syndrome with unspecified morphologic changes, R80.8 - Other proteinuria Medications: Changed From enalapril maleate 10 mg PO BID 90 days 180 tabs 3RF To enalapril maleate 20 mg PO BID 180 tabs 3RF 90 days Coding Level of Care Code Est Pt Level 4 (60052) Diagnoses Hypertension secondary to other renal disorders I15.1 Hypertension type: secondary to other renal disorders Nephrotic syndrome N04.9 Other proteinuria R80.8 Proteinuria type: other
== END 2024-12-18 10:47 | disposition home or self-care (01) ==
LOC: HO.HKA 09:55
PROVIDERS: Visit Provider Internal Medicine Nephrology
DX: I15.1 Hypertension secondary to other renal disorders (principal); N04.9 Nephrotic syndrome with unspecified morphologic changes; R80.8 Other proteinuria
CPT/HCPCS: 99214

== ENCOUNTER → 2024-12-18 09:54 | Outpatient (BNVA) | payer OTHER, SELFPAY | PROVIDERS: Visit Provider Internal Medicine Nephrology | DX: I15.1 Hypertension secondary to other renal disorders (principal); N04.9 Nephrotic syndrome with unspecified morphologic changes; R80.8 Other proteinuria | CPT/HCPCS: 99212 ==